=== PATIENT | male | born 1940 ===

== ENCOUNTER 2017-01-29 10:04 | Inpatient (IN) | payer MEDICAID, OTHER ==
--- NOTE | 2017-01-29 10:27 | C.PDOC ---
History Of Present Illness 76 y/o male, PMHx including asthma and emphysema, currently taking Proair and Symbicort daily, presents to ED with complaint of SOB. Patient states he became acutely short of breath [place]. Patient reports shortness of breath worsened today, prompting visit. Patient also reports non-productive cough. Otherwise, denies fever, chills, or chest pain. Patient notes concern for fluid in his lungs but denies any leg swelling. States he had a stress test 3 months ago that was normal. Speaking in complete sentences on arrival. PMD: Doe Leija Chief Complaint (Nursing): Shortness Of Breath History Per: Patient History/Exam Limitations: no limitations Onset/Duration Of Symptoms: Days Current Symptoms Are (Timing): Worse Current Respiratory Medications: Albuterol, Steroid Inhaler Associated Symptoms: denies: Fever, Chills, Chest Pain, Productive Cough, Ankle/ Leg Swelling Recent travel outside of the [place]: No Past Medical History Reviewed: Historical Data, Nursing Documentation, Vital Signs Vital Signs: Last Vital Signs Temp 97.4 F L 01/29/17 10:06 Pulse 93 H 01/29/17 10:06 Resp 18 01/29/17 10:43 BP 185/77 H 01/29/17 10:06 Pulse Ox 92 L 01/29/17 11:48 - Medical History PMH: Asthma, Emphysema, HTN Family History: States: Unknown Family Hx - Social History Hx Alcohol Use: Yes Hx Substance Use: No - Immunization History Hx Tetanus Toxoid Vaccination: No Hx Influenza Vaccination: Yes Hx Pneumococcal Vaccination: No Review Of Systems Except As Marked, All Systems Reviewed And Found Negative. Constitutional: Negative for: Fever, Chills Eyes: Negative for: Pain ENT: Negative for: Ear Pain Cardiovascular: Positive for: Chest Pain (intermittent ). Negative for: Palpitations, Orthopnea, Edema, Light Headedness Respiratory: Positive for: Cough, Shortness of Breath, SOB with Excertion. Negative for: Sputum, Wheezing Gastrointestinal: Negative for: Nausea, Vomiting Genitourinary: Negative for: Dysuria Skin: Negative for: Rash Neurological: Negative for: Weakness, Numbness, Altered Mental Status, Headache , Dizziness Psych: Negative for: Anxiety Physical Exam - Physical Exam Appears: Well, No Acute Distress, Other (speaking in complete sentences) Skin: Warm, Dry, No Diaphoretic Head: Atraumatic, Normacephalic Oral Mucosa: Moist Chest: Symmetrical Cardiovascular: Rhythm Regular, No Edema Respiratory: Decreased Breath Sounds (decreased air entry at bases ), No Rales, No Rhonchi, No Wheezing Gastrointestinal/Abdominal: Soft, No Tenderness Back: Normal Inspection Extremity: Normal ROM, No Pedal Edema, Capillary Refill (< 2 sec. ), No Swelling Neurological/Psych: Oriented x3, Normal Speech, Normal Cognition ED Course And Treatment - Laboratory Results Result Diagrams: 01/29/17 10:38 01/29/17 10:38 ECG: Interpreted By Me ECG Rhythm: Sinus Rhythm Interpretation Of ECG: no ST/T wave elevations, normal intervals Rate From EC (bpm) O2 Sat by Pulse Oximetry: 92 Medical Decision Making Medical Decision Making: ddx: copd exacerbation vs. ACS vs. pneumonia Plan: * duoneb treatment * bloodwork * CxR, EKG Progress: Spoke to radiologist Dr. Veronica as there is no prior cxray and it shows extensive interstitial opacities. Differential edema vs infection. Patient has no SIRS criteria, is afebrile and wbc of only 13. However, he also has no lower extremity edema and normal bnp making it diagnosis unclear. However, patient is symptomatic with concerning cxray and hypoxia, Due to concern for infection, blood and urine cx sent and antibiotics started (vbg with lactate sent). Due to concern for chf and due to elevated bp, lasix ordered due to lung sounds and hypoxia. Patient reports recent cardiac workup but unable to state MDs name and I am concerned due to cardiomegaly and cxray findings. Will likely need further cardiac workup and echo on this admission as well as further evaluation of ?infection. Spoke to Waqar as patient's PMD does not have privileges at [facility] and patient will be admitted to [facility]. Disposition - Disposition Disposition: HOSPITALIZED Disposition Time: 11:26 Condition: FAIR - Clinical Impression Clinical Impression: Shortness of breath, Chronic congestive heart failure - Scribe Statement The provider has reviewed the documentation as recorded by the Ashlie Mejia Provider Scribe Attestation: All medical record entries made by the Scribe were at my direction and personally dictated by me. I have reviewed the chart and agree that the record accurately reflects my personal performance of the history, physical exam, medical decision making, and the department course for this patient. I have also personally directed, reviewed, and agree with the discharge instructions and disposition.
[2017-01-29] MEDS ORDERED: Albuterol-Ipratrop 3 mg / 0.5 (3 ml) UD INH STA (10:28)
[2017-01-29 10:43] LABS: BASO % 0.3 % (0.0-2.0); EOS # 0.5 K/uL (0.0-0.7); EOS % 3.5 % (0.0-4.0); HEMATOCRIT 42.1 % (35.0-51.0); LYMPH # 3.8 K/uL (1.0-4.3); LYMPH % 29.5 % (20.0-40.0); MEAN CELL VOLUME 86.7 fL (80.0-94.0); MEAN CORPUSCULAR HGB CONC 32.3 g/dL (33.0-37.0); MEAN PLATELET VOLUME 7.4 fL (7.2-11.7); MONO # 0.9 K/uL (0.0-0.8); MONO % 7.2 % (0.0-10.0); NRBC % 0.1 % (0.0-2.0); RED CELL DISTRIBUTION WIDTH 13.8 % (11.5-14.5)
[2017-01-29] MEDS ORDERED: Albuterol-Ipratrop 3 mg / 0.5 (3 ml) UD ONE (10:46)
[2017-01-29 10:55] LABS: CHLORIDE 99 mmol/L (98-107); POTASSIUM 4.2 mmol/L (3.6-5.2); SODIUM 139 mmol/L (132-148)
[2017-01-29 10:58] LABS: ALKALINE PHOSPHATASE 100 U/L (38-126); ALT/SGPT 21 U/L (21-72); AST/SGOT 28 U/L (17-59); BILIRUBIN,TOTAL 0.8 mg/dL (0.2-1.3); BLOOD UREA NITROGEN 17 mg/dL (9-20); CALCIUM 9.1 mg/dl (8.6-10.4); CARBON DIOXIDE 31 mmol/L (22-30); GFR AFRICAN-AMERICAN > 60; GLUCOSE,RANDOM 97 mg/dL (75-110); TOTAL PROTEIN 7.9 g/dL (6.3-8.3)
[2017-01-29] MEDS ORDERED: Azithromycin 500 MG in Sodium Chloride 0.9% 250 ML IVPB STA (11:42)
--- NOTE | 2017-01-29 11:48 | RAD ---
HISTORY: shortness of breath COMPARISON: None available. TECHNIQUE: Chest, one view. FINDINGS: Examination limited by habitus. LUNGS: Moderate extensive patchy airspace and interstitial opacities may reflect infection or edema. Probable small bilateral pleural effusions. No definite pneumothorax. Please note that chest x-ray has limited sensitivity for the detection of pulmonary masses. CARDIOVASCULAR: Partially obscured cardiomegaly. OSSEOUS STRUCTURES: Degenerative changes of the spine and shoulders. VISUALIZED UPPER ABDOMEN: Unremarkable. OTHER FINDINGS: None. IMPRESSION: Moderate extensive patchy airspace and interstitial opacities may reflect infection or edema. Probable small bilateral pleural effusions. Partially obscured cardiomegaly.
[2017-01-29 13:14] LABS: DRAW SITE VENOUS; VENOUS BLOOD GAS BASE EXCESS 3.7 mmol/L (0.0-2.0); VENOUS BLOOD GAS PCO2 49 mmHg (40-60); VENOUS BLOOD PH 7.39 (7.32-7.43)
[2017-01-29] MEDS ORDERED: cefTRIAXone IV 1 gm in Dextros 50 ML IVPB ONE (13:20)
[2017-01-29] MEDS ORDERED: Azithromycin 500mg/250ML NS 500 MG/250 ML BAG IVPB ONE (13:53)
[2017-01-29] MEDS ORDERED: Albuterol HFA 90 mcg/actuation (8 g) IH PRN (16:18)
[2017-01-29] MEDS: cefTRIAXone IV 1 gm in Dextros 50 ML IVPB SCH (17:47)
[2017-01-29] MEDS: Naproxen 550 mg Tab PO SCH (17:47)
[2017-01-29] MEDS: MethylPREDNISolone 40 mg Vial IVP SCH (17:47)
[2017-01-29 17:54] LABS: RBC URINE 1 /hpf (0-3); URINE BILIRUBIN NEGATIVE (NEGATIVE); URINE BLOOD NEGATIVE (NEGATIVE); URINE COLOR Colorless (YELLOW); URINE GLUCOSE (UA) NORMAL (Normal); URINE KETONE NEGATIVE (NEGATIVE); URINE LEUKOCYTE ESTERASE NEG Leu/uL (Negative); URINE PROTEIN NEGATIVE (NEGATIVE); URINE UROBILINOGEN NORMAL mg/dL (0.2-1.0)
[2017-01-29] MEDS: Azithromycin 500 MG in Sodium Chloride 0.9% 250 ML IVPB SCH (19:13)
[2017-01-29] MEDS ORDERED: Fluticasone-Salmeterol 250-50mcg Diskus IH SCH (20:00)
--- NOTE | 2017-01-29 20:54 | CP.PCM.HP ---
History of Present Illness - History of Present Illness History of Present Illness: 76-year-old male with past medical history including asthma and emphysema, currently taking prior and Symbicort daily, presented to ED with complaints of SOB. Patient states he became acutely short of breath after [place] stairs [place]. Patient reports shortness of breath worsened today, prompting visit. Patient also reports nonproductive cough. Otherwise denies fever, chills or chest pain. Patient notes concern for fluid in his lung but denies any leg swelling. States he had a stress test 3 months ago that was normal. Speaking in complete sentences on arrival. Present on Admission - Present on Admission Any Indicators Present on Admission: No Past Patient History - Past Social History Smoking Status: Never Smoked - CARDIAC Hx Hypertension: Yes - PULMONARY Hx Asthma: Yes Hx Emphysema: Yes - NEUROLOGICAL Hx Neurological Disorder: No - HEENT Hx HEENT Problems: No - RENAL Hx Chronic Kidney Disease: No - ENDOCRINE/METABOLIC Hx Endocrine Disorders: No - HEMATOLOGICAL/ONCOLOGICAL Hx Blood Transfusions: No - INTEGUMENTARY Hx Dermatological Problems: No - MUSCULOSKELETAL/RHEUMATOLOGICAL Hx Falls: No - GASTROINTESTINAL Hx Gastrointestinal Disorders: No - GENITOURINARY/GYNECOLOGICAL Hx Genitourinary Disorders: No - PSYCHIATRIC Hx Substance Use: No - SURGICAL HISTORY Hx Surgeries: Yes Hx Herniorrhaphy: Yes - ANESTHESIA Hx Anesthesia: Yes Hx Anesthesia Reactions: No Hx Malignant Hyperthermia: No Has any member of the family had a problem w/ anesthesia?: No Meds Allergies/Adverse Reactions: Allergies Allergy/AdvReac Type Severity Reaction Status Date / Time pollen extracts Allergy Verified 02/05/17 18:15 Physical Exam - Constitutional Appears: Well - Head Exam Head Exam: ATRAUMATIC, NORMAL INSPECTION, NORMOCEPHALIC - Eye Exam Eye Exam: EOMI, Normal appearance, PERRL Pupil Exam: NORMAL ACCOMODATION, PERRL - ENT Exam ENT Exam: Mucous Membranes Moist, Normal Exam - Neck Exam Neck exam: Positive for: Normal Inspection - Respiratory Exam Respiratory Exam: Decreased Breath Sounds - Cardiovascular Exam Cardiovascular Exam: REGULAR RHYTHM, +S1, +S2 - GI/Abdominal Exam GI & Abdominal Exam: Diminished Bowel Sounds, Soft - Rectal Exam Rectal Exam: Deferred Results - Vital Signs Recent Vital Signs: Last Vital Signs Temp 97.3 F L 01/29/17 15:36 Pulse 86 01/29/17 15:36 Resp 20 01/29/17 15:36 BP 135/78 01/29/17 15:36 Pulse Ox 97 01/29/17 15:36 - Labs Result Diagrams: 02/02/17 11:30 02/02/17 11:30 Labs: Laboratory Results - last 24 hr 01/29/17 01/29/17 12:27 17:38 Puncture Site Venous pO2 19 L Jeremy Test Na VBG pH 7.39 VBG pCO2 49 VBG HCO3 25.9 VBG O2 Sat (Calc) 34.8 L VBG Base Excess 3.7 H Urine Color Colorless Urine Clarity Clear Urine pH 7.0 Ur Specific [place] 1.005 Urine Protein Negative Urine Glucose (UA) Normal Urine Ketones Negative Urine Blood Negative Urine Nitrate Negative Urine Bilirubin Negative Urine Urobilinogen Normal Ur Leukocyte Esterase Neg Urine RBC (Auto) 1 Ur Squamous Epith Cells < 1 Assessment & Plan (1) Chronic congestive heart failure Status: Acute (2) Emphysema of lung Status: Acute (3) Near syncope Status: Acute (4) Pneumonia Status: Acute (5) Shortness of breath Status: Acute (6) Shortness of breath Status: Acute - Assessment and Plan (Free Text) Plan: Consultation with prescription benefit specialist ecg, f/u with Cxr Start Duoneb heparin IV antibiotic
[2017-01-29] MEDS: Albuterol-Ipratrop 3 mg / 0.5 (3 ml) UD INH SCH (21:04)
[2017-01-30] MEDS: MethylPREDNISolone 40 mg Vial IVP SCH ×3 (00:28→16:48)
[2017-01-30] MEDS: Albuterol-Ipratrop 3 mg / 0.5 (3 ml) UD INH SCH ×4 (02:27→19:31)
[2017-01-30] MEDS: cefTRIAXone IV 1 gm in Dextros 50 ML IVPB SCH ×2 (05:26→16:49)
--- NOTE | 2017-01-30 09:39 | CP.PCM.PN ---
Subjective - Date & Time of Evaluation Date of Evaluation: 01/30/17 Time of Evaluation: 14:00 - Subjective Subjective: clinically same Objective - Vital Signs/Intake and Output Vital Signs (last 24 hours): Temp Pulse Resp BP Pulse Ox 97.6 F 93 H 18 152/69 H 98 01/30/17 07:00 01/30/17 07:00 01/30/17 07:00 01/30/17 07:00 01/30/17 07:00 Intake and Output: 01/30/17 01/30/17 06:59 18:59 Intake Total 170 Output Total 350 Balance -180 - Medications Medications: Current Medications Albuterol (Ventolin Hfa 90 Mcg/Actuation (8 G)) 90 puff IH RQ6 PRN PRN Reason: Shortness of Breath Albuterol/Ipratropium (Duoneb 3 Mg/0.5 Mg (3 Ml) Ud) 3 ml INH RQ6 [facility] Last Admin: 01/30/17 07:27 Dose: 3 ml Heparin Sodium (Porcine) (Heparin) 5,000 units SC Q12 [facility] Home Med (Budesonide/Formoterol Fumarate [Symbicort 160-4.5 Mcg Inhaler]) 1 aer IH BID [facility] Hydrochlorothiazide (Microzide) 12.5 mg PO DAILY [facility] Ceftriaxone Sodium (Rocephin Iv 1 Gm Duplex) 50 mls @ 100 mls/hr IVPB Q12H [facility] Last Admin: 01/30/17 05:26 Dose: 100 mls/hr Azithromycin 500 mg/ Sodium (Chloride) 250 mls @ 250 mls/hr IVPB Q24H [facility] Last Admin: 01/29/17 19:13 Dose: 250 mls/hr Losartan Potassium (Cozaar) 100 mg PO DAILY [facility] Methylprednisolone (Solu-Medrol) 40 mg IVP Q8H [facility] Last Admin: 01/30/17 00:28 Dose: 40 mg Naproxen (Anaprox Ds) 550 mg PO BID [facility] Last Admin: 01/29/17 17:47 Dose: 550 mg Pneumococcal Polyvalent Vaccine (Pneumovax 23 Vaccine) 0.5 ml IM .ONCE ONE Stop: 01/31/17 10:01 Potassium Chloride (Klor-Con 10) 10 meq PO DAILY [facility] - Constitutional Appears: Well - Head Exam Head Exam: ATRAUMATIC, NORMAL INSPECTION, NORMOCEPHALIC - Eye Exam Eye Exam: EOMI, Normal appearance, PERRL Pupil Exam: NORMAL ACCOMODATION, PERRL - ENT Exam ENT Exam: Mucous Membranes Moist, Normal Exam - Neck Exam Neck Exam: Full ROM, Normal Inspection. 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
[2017-01-30] MEDS: Naproxen 550 mg Tab PO SCH ×2 (10:31→16:59)
[2017-01-30] MEDS: Potassium Chloride 10 mEq ER Tab PO SCH (10:31)
[2017-01-30 11:27] LABS: BASO % 0.1 % (0.0-2.0); HEMATOCRIT 41.6 % (35.0-51.0); LYMPH # 3.4 K/uL (1.0-4.3); LYMPH % 19.9 % (20.0-40.0); MEAN CELL VOLUME 85.9 fL (80.0-94.0); MEAN CORPUSCULAR HEMOGLOBIN 27.8 pg (27.0-31.0); MEAN CORPUSCULAR HGB CONC 32.4 g/dL (33.0-37.0); MEAN PLATELET VOLUME 7.5 fL (7.2-11.7); MONO # 0.6 K/uL (0.0-0.8); MONO % 3.3 % (0.0-10.0); RED CELL DISTRIBUTION WIDTH 13.8 % (11.5-14.5); WHITE BLOOD COUNT 16.9 K/uL (4.8-10.8)
[2017-01-30 11:55] LABS: CHLORIDE 100 mmol/L (98-107); SODIUM 138 mmol/L (132-148)
[2017-01-30 11:57] LABS: ALB/GLOB RATIO 1.1 (1.0-2.1); ALKALINE PHOSPHATASE 86 U/L (38-126); AST/SGOT 22 U/L (17-59); BILIRUBIN,TOTAL 0.5 mg/dL (0.2-1.3); CARBON DIOXIDE 26 mmol/L (22-30); GFR AFRICAN-AMERICAN > 60; TOTAL PROTEIN 7.2 g/dL (6.3-8.3)
[2017-01-30 11:58] LABS: ALT/SGPT 18 U/L (21-72); BLOOD UREA NITROGEN 27 mg/dL (9-20); CALCIUM 8.8 mg/dl (8.6-10.4); GLUCOSE,RANDOM 161 mg/dL (75-110)
--- NOTE | 2017-01-30 18:48 | CP.PCM.CON ---
Past Patient History - Past Social History Smoking Status: Never Smoked - CARDIAC Hx Hypertension: Yes - PULMONARY Hx Asthma: Yes Hx Emphysema: Yes - NEUROLOGICAL Hx Neurological Disorder: No - HEENT Hx HEENT Problems: No - RENAL Hx Chronic Kidney Disease: No - ENDOCRINE/METABOLIC Hx Endocrine Disorders: No - HEMATOLOGICAL/ONCOLOGICAL Hx Blood Transfusions: No - INTEGUMENTARY Hx Dermatological Problems: No - MUSCULOSKELETAL/RHEUMATOLOGICAL Hx Falls: No - GASTROINTESTINAL Hx Gastrointestinal Disorders: No - GENITOURINARY/GYNECOLOGICAL Hx Genitourinary Disorders: No - PSYCHIATRIC Hx Substance Use: No - SURGICAL HISTORY Hx Surgeries: Yes Hx Herniorrhaphy: Yes - ANESTHESIA Hx Anesthesia: Yes Hx Anesthesia Reactions: No Hx Malignant Hyperthermia: No Has any member of the family had a problem w/ anesthesia?: No Meds Allergies/Adverse Reactions: Allergies Allergy/AdvReac Type Severity Reaction Status Date / Time pollen extracts Allergy Verified 01/29/17 10:11 - Medications Medications: Current Medications Albuterol (Ventolin Hfa 90 Mcg/Actuation (8 G)) 90 puff IH RQ6 PRN PRN Reason: Shortness of Breath Albuterol/Ipratropium (Duoneb 3 Mg/0.5 Mg (3 Ml) Ud) 3 ml INH RQ6 [facility] Last Admin: 01/30/17 13:16 Dose: 3 ml Heparin Sodium (Porcine) (Heparin) 5,000 units SC Q12 [facility] Last Admin: 01/30/17 10:31 Dose: 5,000 units Hydrochlorothiazide (Microzide) 12.5 mg PO DAILY [facility] Last Admin: 01/30/17 10:31 Dose: 12.5 mg Ceftriaxone Sodium (Rocephin Iv 1 Gm Duplex) 50 mls @ 100 mls/hr IVPB Q12H [facility] Last Admin: 01/30/17 16:49 Dose: 100 mls/hr Azithromycin 500 mg/ Sodium (Chloride) 250 mls @ 250 mls/hr IVPB Q24H [facility] Last Admin: 01/29/17 19:13 Dose: 250 mls/hr Losartan Potassium (Cozaar) 100 mg PO DAILY [facility] Last Admin: 01/30/17 10:31 Dose: 100 mg Methylprednisolone (Solu-Medrol) 40 mg IVP Q8H [facility] Last Admin: 01/30/17 16:48 Dose: 40 mg Naproxen (Anaprox Ds) 550 mg PO BID [facility] Last Admin: 01/30/17 16:59 Dose: 550 mg Pneumococcal Polyvalent Vaccine (Pneumovax 23 Vaccine) 0.5 ml IM .ONCE ONE Stop: 01/31/17 10:01 Potassium Chloride (Klor-Con 10) 10 meq PO DAILY [facility] Last Admin: 01/30/17 10:31 Dose: 10 meq Fluticasone/Salmeterol (Advair Diskus 250/50) 1 puff IH RQ12 [facility] Results - Vital Signs Recent Vital Signs: Last Vital Signs Temp 97.6 F 01/30/17 15:51 Pulse 106 H 01/30/17 16:50 Resp 20 01/30/17 15:51 BP 191/111 H 01/30/17 16:50 Pulse Ox 97 01/30/17 16:50 - Labs Result Diagrams: 01/30/17 11:13 01/30/17 11:13 Labs: Laboratory Results - last 24 hr 01/30/17 01/30/17 11:13 11:13 WBC 16.9 H RBC 4.85 Hgb 13.5 Hct 41.6 MCV 85.9 MCH 27.8 MCHC 32.4 L RDW 13.8 Plt Count 463 H MPV 7.5 Neut % (Auto) 76.7 H Lymph % (Auto) 19.9 L [place] % (Auto) 3.3 Eos % (Auto) 0.0 Baso % (Auto) 0.1 Neut # 13.0 H Lymph # 3.4 [place] # 0.6 Eos # 0.0 Baso # 0.0 Sodium 138 Potassium 4.0 Chloride 100 Carbon Dioxide 26 Anion Gap 16 BUN 27 H Creatinine 0.8 Est GFR ( Amer) > 60 Est GFR (Non-Af Amer) > 60 Random Glucose 161 H Calcium 8.8 Total Bilirubin 0.5 AST 22 ALT 18 L Alkaline Phosphatase 86 Total Protein 7.2 Albumin 3.7 Globulin 3.5 Albumin/Globulin Ratio 1.1
[2017-01-30] MEDS: Azithromycin 500 MG in Sodium Chloride 0.9% 250 ML IVPB SCH (19:09)
[2017-01-31] MEDS: MethylPREDNISolone 40 mg Vial IVP SCH ×3 (00:12→17:30)
[2017-01-31] MEDS: Albuterol-Ipratrop 3 mg / 0.5 (3 ml) UD INH SCH ×4 (01:18→19:31)
[2017-01-31] MEDS: cefTRIAXone IV 1 gm in Dextros 50 ML IVPB SCH ×2 (05:18→18:10)
[2017-01-31] MEDS ORDERED: Pneumococcal 23-Valent Vaccine IM ONE ×2 (10:00→11:15)
[2017-01-31] MEDS: Naproxen 550 mg Tab PO SCH ×2 (11:02→18:10)
[2017-01-31] MEDS: Potassium Chloride 10 mEq ER Tab PO SCH (11:02)
--- NOTE | 2017-01-31 14:21 | CP.PCM.PN ---
Subjective - Date & Time of Evaluation Date of Evaluation: 01/31/17 Time of Evaluation: 12:40 - Subjective Subjective: clinically same Objective - Vital Signs/Intake and Output Vital Signs (last 24 hours): Temp Pulse Resp BP Pulse Ox 97.3 F L 83 18 141/51 L 96 01/31/17 07:12 01/31/17 07:12 01/31/17 07:12 01/31/17 07:12 01/31/17 07:12 Intake and Output: 01/31/17 01/31/17 06:59 18:59 Intake Total 540 Balance 540 - Medications Medications: Current Medications Albuterol (Ventolin Hfa 90 Mcg/Actuation (8 G)) 90 puff IH RQ6 PRN PRN Reason: Shortness of Breath Albuterol/Ipratropium (Duoneb 3 Mg/0.5 Mg (3 Ml) Ud) 3 ml INH RQ6 [facility] Last Admin: 01/31/17 08:47 Dose: 3 ml Heparin Sodium (Porcine) (Heparin) 5,000 units SC Q12 [facility] Last Admin: 01/31/17 11:03 Dose: 5,000 units Hydrochlorothiazide (Microzide) 12.5 mg PO DAILY [facility] Last Admin: 01/31/17 11:02 Dose: 12.5 mg Ceftriaxone Sodium (Rocephin Iv 1 Gm Duplex) 50 mls @ 100 mls/hr IVPB Q12H [facility] Last Admin: 01/31/17 05:18 Dose: 100 mls/hr Azithromycin 500 mg/ Sodium (Chloride) 250 mls @ 250 mls/hr IVPB Q24H [facility] Last Admin: 01/30/17 19:09 Dose: 250 mls/hr Losartan Potassium (Cozaar) 100 mg PO DAILY [facility] Last Admin: 01/31/17 11:02 Dose: 100 mg Methylprednisolone (Solu-Medrol) 40 mg IVP Q8H [facility] Last Admin: 01/31/17 09:03 Dose: 40 mg Naproxen (Anaprox Ds) 550 mg PO BID [facility] Last Admin: 01/31/17 11:02 Dose: 550 mg Potassium Chloride (Klor-Con 10) 10 meq PO DAILY [facility] Last Admin: 01/31/17 11:02 Dose: 10 meq Fluticasone/Salmeterol (Advair Diskus 250/50) 1 puff IH RQ12 [facility] - Labs Labs: 01/30/17 11:13 01/30/17 11:13 - Constitutional Appears: Well - Head Exam Head Exam: ATRAUMATIC, NORMAL INSPECTION, NORMOCEPHALIC - Eye Exam Eye Exam: EOMI, Normal appearance, PERRL Pupil Exam: NORMAL ACCOMODATION, PERRL - ENT Exam ENT Exam: Mucous Membranes Moist, Normal Exam - Neck Exam Neck Exam: Full ROM, Normal Inspection. absent: Lymphadenopathy - Respiratory Exam Respiratory Exam: Decreased Breath Sounds - Cardiovascular Exam Cardiovascular Exam: REGULAR RHYTHM, +S1, +S2 - GI/Abdominal Exam GI & Abdominal Exam: Soft, Diminished Bowel Sounds - Rectal Exam Rectal Exam: Deferred Assessment and Plan - Assessment and Plan (Free Text) Plan: f/u with statement services representative f/u with labs jennifer. Duoneb heparin IV antibiotic
--- NOTE | 2017-01-31 16:16 | CP.PCM.PN ---
Subjective - Date & Time of Evaluation Date of Evaluation: 01/31/17 Time of Evaluation: 16:16 Objective - Vital Signs/Intake and Output Vital Signs (last 24 hours): Temp Pulse Resp BP Pulse Ox 97.3 F L 81 18 141/51 L 96 01/31/17 07:12 01/31/17 08:00 01/31/17 07:12 01/31/17 07:12 01/31/17 07:12 Intake and Output: 01/31/17 01/31/17 06:59 18:59 Intake Total 540 Balance 540 - Medications Medications: Current Medications Albuterol (Ventolin Hfa 90 Mcg/Actuation (8 G)) 90 puff IH RQ6 PRN PRN Reason: Shortness of Breath Albuterol/Ipratropium (Duoneb 3 Mg/0.5 Mg (3 Ml) Ud) 3 ml INH RQ6 [facility] Last Admin: 01/31/17 13:25 Dose: 3 ml Heparin Sodium (Porcine) (Heparin) 5,000 units SC Q12 [facility] Last Admin: 01/31/17 11:03 Dose: 5,000 units Hydrochlorothiazide (Microzide) 12.5 mg PO DAILY [facility] Last Admin: 01/31/17 11:02 Dose: 12.5 mg Ceftriaxone Sodium (Rocephin Iv 1 Gm Duplex) 50 mls @ 100 mls/hr IVPB Q12H [facility] Last Admin: 01/31/17 05:18 Dose: 100 mls/hr Azithromycin 500 mg/ Sodium (Chloride) 250 mls @ 250 mls/hr IVPB Q24H [facility] Last Admin: 01/30/17 19:09 Dose: 250 mls/hr Losartan Potassium (Cozaar) 100 mg PO DAILY [facility] Last Admin: 01/31/17 11:02 Dose: 100 mg Methylprednisolone (Solu-Medrol) 40 mg IVP Q8H [facility] Last Admin: 01/31/17 09:03 Dose: 40 mg Naproxen (Anaprox Ds) 550 mg PO BID [facility] Last Admin: 01/31/17 11:02 Dose: 550 mg Potassium Chloride (Klor-Con 10) 10 meq PO DAILY [facility] Last Admin: 01/31/17 11:02 Dose: 10 meq Fluticasone/Salmeterol (Advair Diskus 250/50) 1 puff IH RQ12 [facility] Last Admin: 01/31/17 14:59 Dose: Not Given - Labs Labs: 01/30/17 11:13 01/30/17 11:13
[2017-01-31] MEDS: Azithromycin 500 MG in Sodium Chloride 0.9% 250 ML IVPB SCH (20:00)
[2017-02-01] MEDS: MethylPREDNISolone 40 mg Vial IVP SCH ×3 (00:20→17:04)
[2017-02-01] MEDS: Albuterol-Ipratrop 3 mg / 0.5 (3 ml) UD INH SCH ×4 (01:22→19:34)
[2017-02-01] MEDS: cefTRIAXone IV 1 gm in Dextros 50 ML IVPB SCH ×2 (04:57→17:05)
[2017-02-01] MEDS: Potassium Chloride 10 mEq ER Tab PO SCH (11:05)
[2017-02-01] MEDS: Naproxen 550 mg Tab PO SCH ×2 (11:07→17:04)
--- NOTE | 2017-02-01 12:49 | CP.PCM.PN ---
Subjective - Date & Time of Evaluation Date of Evaluation: 02/01/17 Time of Evaluation: 11:40 - Subjective Subjective: clinically same Objective - Vital Signs/Intake and Output Vital Signs (last 24 hours): Temp Pulse Resp BP Pulse Ox 97.9 F 80 20 162/80 H 98 02/01/17 07:07 02/01/17 08:00 02/01/17 07:07 02/01/17 07:07 02/01/17 07:07 Intake and Output: 02/01/17 02/01/17 06:59 18:59 Intake Total 700 Output Total 1800 Balance -1100 - Medications Medications: Current Medications Albuterol (Ventolin Hfa 90 Mcg/Actuation (8 G)) 90 puff IH RQ6 PRN PRN Reason: Shortness of Breath Albuterol/Ipratropium (Duoneb 3 Mg/0.5 Mg (3 Ml) Ud) 3 ml INH RQ6 [facility] Last Admin: 02/01/17 07:56 Dose: 3 ml Heparin Sodium (Porcine) (Heparin) 5,000 units SC Q12 [facility] Last Admin: 02/01/17 11:04 Dose: 5,000 units Hydrochlorothiazide (Microzide) 12.5 mg PO DAILY [facility] Last Admin: 02/01/17 11:05 Dose: 12.5 mg Ceftriaxone Sodium (Rocephin Iv 1 Gm Duplex) 50 mls @ 100 mls/hr IVPB Q12H [facility] Last Admin: 02/01/17 04:57 Dose: 100 mls/hr Azithromycin 500 mg/ Sodium (Chloride) 250 mls @ 250 mls/hr IVPB Q24H [facility] Last Admin: 01/31/17 20:00 Dose: 250 mls/hr Losartan Potassium (Cozaar) 100 mg PO DAILY [facility] Last Admin: 02/01/17 11:05 Dose: 100 mg Methylprednisolone (Solu-Medrol) 40 mg IVP Q8H [facility] Last Admin: 02/01/17 11:09 Dose: 40 mg Naproxen (Anaprox Ds) 550 mg PO BID [facility] Last Admin: 02/01/17 11:07 Dose: 550 mg Potassium Chloride (Klor-Con 10) 10 meq PO DAILY [facility] Last Admin: 02/01/17 11:05 Dose: 10 meq Fluticasone/Salmeterol (Advair Diskus 250/50) 1 puff IH RQ12 [facility] Last Admin: 01/31/17 14:59 Dose: Not Given - Labs Labs: 01/30/17 11:13 01/30/17 11:13 - Constitutional Appears: Well - Head Exam Head Exam: ATRAUMATIC, NORMAL INSPECTION, NORMOCEPHALIC - Eye Exam Eye Exam: EOMI, Normal appearance, PERRL Pupil Exam: NORMAL ACCOMODATION, PERRL - ENT Exam ENT Exam: Mucous Membranes Moist, Normal Exam - Neck Exam Neck Exam: Full ROM, Normal Inspection. absent: Lymphadenopathy - Respiratory Exam Respiratory Exam: Decreased Breath Sounds - Cardiovascular Exam Cardiovascular Exam: REGULAR RHYTHM, +S1, +S2 - GI/Abdominal Exam GI & Abdominal Exam: Soft, Diminished Bowel Sounds - Rectal Exam Rectal Exam: Deferred Assessment and Plan (1) Emphysema of lung Status: Acute (2) Pneumonia Status: Acute (3) Chronic congestive heart failure Status: Acute (4) Shortness of breath Status: Acute - Assessment and Plan (Free Text) Plan: jennifer iv rocephin zthromax pulm consult brnchodilator pt feels better will discharge on po antibiotic tomorrow if ok with dr. nam.
--- NOTE | 2017-02-01 19:11 | CP.PCM.PN ---
Objective - Vital Signs/Intake and Output Vital Signs (last 24 hours): Temp Pulse Resp BP Pulse Ox 97.8 F 106 H 20 135/78 95 02/01/17 15:39 02/01/17 15:39 02/01/17 15:39 02/01/17 15:39 02/01/17 15:39 Intake and Output: 02/01/17 02/02/17 18:59 06:59 Intake Total 400 Balance 400 - Medications Medications: Current Medications Albuterol (Ventolin Hfa 90 Mcg/Actuation (8 G)) 90 puff IH RQ6 PRN PRN Reason: Shortness of Breath Albuterol/Ipratropium (Duoneb 3 Mg/0.5 Mg (3 Ml) Ud) 3 ml INH RQ6 [facility] Last Admin: 02/01/17 14:27 Dose: 3 ml Heparin Sodium (Porcine) (Heparin) 5,000 units SC Q12 [facility] Last Admin: 02/01/17 11:04 Dose: 5,000 units Hydrochlorothiazide (Microzide) 12.5 mg PO DAILY [facility] Last Admin: 02/01/17 11:05 Dose: 12.5 mg Ceftriaxone Sodium (Rocephin Iv 1 Gm Duplex) 50 mls @ 100 mls/hr IVPB Q12H [facility] Last Admin: 02/01/17 17:05 Dose: 100 mls/hr Azithromycin 500 mg/ Sodium (Chloride) 250 mls @ 250 mls/hr IVPB Q24H [facility] Last Admin: 01/31/17 20:00 Dose: 250 mls/hr Losartan Potassium (Cozaar) 100 mg PO DAILY [facility] Last Admin: 02/01/17 11:05 Dose: 100 mg Methylprednisolone (Solu-Medrol) 40 mg IVP Q8H [facility] Last Admin: 02/01/17 17:04 Dose: 40 mg Naproxen (Anaprox Ds) 550 mg PO BID [facility] Last Admin: 02/01/17 17:04 Dose: 550 mg Potassium Chloride (Klor-Con 10) 10 meq PO DAILY [facility] Last Admin: 02/01/17 11:05 Dose: 10 meq Fluticasone/Salmeterol (Advair Diskus 250/50) 1 puff IH RQ12 [facility] Last Admin: 01/31/17 14:59 Dose: Not Given - Labs Labs: 01/30/17 11:13 01/30/17 11:13
[2017-02-01] MEDS: Azithromycin 500 MG in Sodium Chloride 0.9% 250 ML IVPB SCH (20:00)
[2017-02-02] MEDS: MethylPREDNISolone 40 mg Vial IVP SCH ×2 (01:29→08:56)
[2017-02-02] MEDS: Albuterol-Ipratrop 3 mg / 0.5 (3 ml) UD INH SCH ×3 (01:34→13:37)
[2017-02-02] MEDS: cefTRIAXone IV 1 gm in Dextros 50 ML IVPB SCH (05:13)
[2017-02-02] MEDS: Potassium Chloride 10 mEq ER Tab PO SCH (09:51)
[2017-02-02] MEDS: Naproxen 550 mg Tab PO SCH (09:52)
[2017-02-02 11:52] LABS: MONO # 1.3 K/uL (0.0-0.8)
[2017-02-02 12:02] LABS: BASO % 0.1 % (0.0-2.0); HEMATOCRIT 44.2 % (35.0-51.0); LYMPH # 6.3 K/uL (1.0-4.3); LYMPH % 25.6 % (20.0-40.0); MEAN CELL VOLUME 87.3 fL (80.0-94.0); MEAN CORPUSCULAR HEMOGLOBIN 27.7 pg (27.0-31.0); MEAN CORPUSCULAR HGB CONC 31.8 g/dL (33.0-37.0); MEAN PLATELET VOLUME 7.6 fL (7.2-11.7); MONO % 5.3 % (0.0-10.0)
[2017-02-02 12:03] LABS: WHITE BLOOD COUNT 24.7 K/uL (4.8-10.8)
[2017-02-02 12:11] LABS: CHLORIDE 98 mmol/L (98-107); POTASSIUM 5.5 mmol/L (3.6-5.2); SODIUM 143 mmol/L (132-148)
[2017-02-02 12:14] LABS: ALB/GLOB RATIO 1.1 (1.0-2.1); ALKALINE PHOSPHATASE 89 U/L (38-126); ALT/SGPT 14 U/L (21-72); AST/SGOT 31 U/L (17-59); BILIRUBIN,TOTAL 0.7 mg/dL (0.2-1.3); BLOOD UREA NITROGEN 29 mg/dL (9-20); CARBON DIOXIDE 32 mmol/L (22-30); GFR AFRICAN-AMERICAN > 60; GLUCOSE,RANDOM 134 mg/dL (75-110); TOTAL PROTEIN 7.6 g/dL (6.3-8.3)
[2017-02-02 12:15] LABS: CALCIUM 9.2 mg/dl (8.6-10.4)
--- NOTE | 2017-02-02 14:01 | CP.PCM.PN ---
Subjective - Date & Time of Evaluation Date of Evaluation: 02/02/17 Time of Evaluation: 12:20 - Subjective Subjective: clinically same Objective - Vital Signs/Intake and Output Vital Signs (last 24 hours): Temp Pulse Resp BP Pulse Ox 97.9 F 97 H 18 183/78 H 95 02/02/17 08:38 02/02/17 09:49 02/02/17 08:38 02/02/17 12:35 02/02/17 08:38 Intake and Output: 02/02/17 02/02/17 06:59 18:59 Intake Total 260 Output Total 150 Balance 110 - Medications Medications: Current Medications Albuterol (Ventolin Hfa 90 Mcg/Actuation (8 G)) 90 puff IH RQ6 PRN PRN Reason: Shortness of Breath Albuterol/Ipratropium (Duoneb 3 Mg/0.5 Mg (3 Ml) Ud) 3 ml INH RQ6 [facility] Last Admin: 02/02/17 13:37 Dose: 3 ml Hydrochlorothiazide (Microzide) 12.5 mg PO DAILY [facility] Last Admin: 02/02/17 09:51 Dose: 12.5 mg Ceftriaxone Sodium (Rocephin Iv 1 Gm Duplex) 50 mls @ 100 mls/hr IVPB Q12H [facility] Last Admin: 02/02/17 05:13 Dose: 100 mls/hr Azithromycin 500 mg/ Sodium (Chloride) 250 mls @ 250 mls/hr IVPB Q24H [facility] Last Admin: 02/01/17 20:00 Dose: 250 mls/hr Losartan Potassium (Cozaar) 100 mg PO DAILY [facility] Last Admin: 02/02/17 09:51 Dose: 100 mg Methylprednisolone (Solu-Medrol) 40 mg IVP Q8H [facility] Last Admin: 02/02/17 08:56 Dose: 40 mg Naproxen (Anaprox Ds) 550 mg PO BID [facility] Last Admin: 02/02/17 09:52 Dose: Not Given Potassium Chloride (Klor-Con 10) 10 meq PO DAILY [facility] Last Admin: 02/02/17 09:51 Dose: 10 meq Fluticasone/Salmeterol (Advair Diskus 250/50) 1 puff IH RQ12 [facility] Last Admin: 01/31/17 14:59 Dose: Not Given - Labs Labs: 02/02/17 11:30 02/02/17 11:30 - Constitutional Appears: Well - Head Exam Head Exam: ATRAUMATIC, NORMAL INSPECTION, NORMOCEPHALIC - Eye Exam Eye Exam: EOMI, Normal appearance, PERRL Pupil Exam: NORMAL ACCOMODATION, PERRL - ENT Exam ENT Exam: Mucous Membranes Moist, Normal Exam - Neck Exam Neck Exam: Full ROM, Normal Inspection. absent: Lymphadenopathy - Respiratory Exam Respiratory Exam: Decreased Breath Sounds - Cardiovascular Exam Cardiovascular Exam: REGULAR RHYTHM, +S1, +S2 - GI/Abdominal Exam GI & Abdominal Exam: Soft, Diminished Bowel Sounds - Rectal Exam Rectal Exam: Deferred Assessment and Plan (1) Emphysema of lung Status: Acute (2) Pneumonia Status: Acute (3) Chronic congestive heart failure Status: Acute (4) Shortness of breath Status: Acute - Assessment and Plan (Free Text) Plan: Patient wiil be discharg home today Continue PO antibiotics as ordered
[2017-02-02] MEDS ORDERED: Sod Polystyrene Sulf 15 gm/60 ml Oral Susp PO ONE (14:57)
--- NOTE | 2017-02-02 15:09 | CP.PCM.PN ---
Subjective - Date & Time of Evaluation Date of Evaluation: 02/02/17 Time of Evaluation: 10:00 - Subjective Subjective: PGY2 on medicine Dr. Rueda service: Pt seen and examined at bedside this morning. No acute events overnight. Pt reports much better symptoms since last week. Pt can do random peak flow of 450. Will DC home today. Objective - Vital Signs/Intake and Output Vital Signs (last 24 hours): Temp Pulse Resp BP Pulse Ox 97.9 F 97 H 18 183/78 H 95 02/02/17 08:38 02/02/17 09:49 02/02/17 08:38 02/02/17 12:35 02/02/17 08:38 Intake and Output: 02/02/17 02/02/17 06:59 18:59 Intake Total 260 Output Total 150 Balance 110 - Medications Medications: Current Medications Albuterol (Ventolin Hfa 90 Mcg/Actuation (8 G)) 90 puff IH RQ6 PRN PRN Reason: Shortness of Breath Albuterol/Ipratropium (Duoneb 3 Mg/0.5 Mg (3 Ml) Ud) 3 ml INH RQ6 [facility] Last Admin: 02/02/17 13:37 Dose: 3 ml Hydrochlorothiazide (Microzide) 12.5 mg PO DAILY [facility] Last Admin: 02/02/17 09:51 Dose: 12.5 mg Ceftriaxone Sodium (Rocephin Iv 1 Gm Duplex) 50 mls @ 100 mls/hr IVPB Q12H [facility] Last Admin: 02/02/17 05:13 Dose: 100 mls/hr Azithromycin 500 mg/ Sodium (Chloride) 250 mls @ 250 mls/hr IVPB Q24H [facility] Last Admin: 02/01/17 20:00 Dose: 250 mls/hr Losartan Potassium (Cozaar) 100 mg PO DAILY [facility] Last Admin: 02/02/17 09:51 Dose: 100 mg Methylprednisolone (Solu-Medrol) 40 mg IVP Q8H [facility] Last Admin: 02/02/17 08:56 Dose: 40 mg Naproxen (Anaprox Ds) 550 mg PO BID [facility] Last Admin: 02/02/17 09:52 Dose: Not Given Potassium Chloride (Klor-Con 10) 10 meq PO DAILY [facility] Last Admin: 02/02/17 09:51 Dose: 10 meq Fluticasone/Salmeterol (Advair Diskus 250/50) 1 puff IH RQ12 [facility] Last Admin: 01/31/17 14:59 Dose: Not Given Sodium Polystyrene Sulfonate (Kayexalate Oral Susp) 30 gm PO ONCE ONE Stop: 02/02/17 14:58 - Labs Labs: 02/02/17 11:30 02/02/17 11:30 - Constitutional Appears: Non-toxic, No Acute Distress - Head Exam Head Exam: NORMAL INSPECTION, NORMOCEPHALIC - Eye Exam Eye Exam: Normal appearance Pupil Exam: NORMAL ACCOMODATION - Respiratory Exam Respiratory Exam: Clear to Ausculation Bilateral, NORMAL BREATHING PATTERN. absent: Rhonchi, Wheezes - Cardiovascular Exam Cardiovascular Exam: REGULAR RHYTHM, +S1, +S2. absent: Gallop, Rubs - GI/Abdominal Exam GI & Abdominal Exam: Soft, Normal Bowel Sounds - Neurological Exam Neurological Exam: Alert, Awake, Oriented x3 - Psychiatric Exam Psychiatric exam: Normal Mood - Skin Skin Exam: Dry, Intact Assessment and Plan - Assessment and Plan (Free Text) Assessment: SOB asthma vs pneumonia vs early mild diastolic CHF Duoneb q6. Advair and Ventolin. Zithromax and Rocephin since 01/29. Will DC with 3 more days of Avelox, as well as Medrol Dose pack. HTN Continue home Cozaar and HCTZ. Hyperkalemia Will give a dose of Kayexalate.
[2017-02-02 16:36] VITALS: BP 161/80; PULSE 98; RESP 24; TEMP 97.4; O2SAT 92
--- NOTE | 2017-02-02 17:44 | PCM.HF ---
Heart Failure Core Measure - Heart Failure Ejection Fraction: 40 % or Greater LIZZ Inhibitor Prescribed: No Contraindication/Reason for not providing: ON ARB Beta-Rickey Prescribed: None Contraindication/Reason for not providing: NOT RX BY MD Angiotensin II Receptor Rickey Prescribed: Yes AnticoagulationTherapy for Atrial Fibrillation/Atrialflutter: No Contraindication/Reason for not providing: NO AFIB Aldosterone Antagonist Prescribed: No Contraindication/Reason for not providing: LVEF >40% Hydralazine Nitrate Prescribed: No Contraindication/Reason for not providing: LVEF >40% Implantable Cardioverter Defibrillator Therapy: No Contraindication/Reason for not providing: LVEF >40% Cardiac Resynchronization Therapy Prescribed: No Contraindication/Reason for not providing: LVEF >40% - Follow up Will be discharged to: Home Follow Up Date (must be within 7 days from discharge): 02/05/17 Follow Up Time: 09:00
--- NOTE | 2017-03-17 12:34 | CARD ---
APPROVED REPORT EKG Measurement Heart [id number] <Conclusion> Normal sinus rhythm Nonspecific ST abnormality Abnormal ECG
== END 2017-02-02 16:00 | disposition home or self-care (01) | DRG 190 ==
LOC: C.ER 10:04 → C.9E 11:46 → C.6T 13:58
PROVIDERS: ADMIT Internal Medicine Nephrology; ATTEND Internal Medicine Nephrology
DX: J44.1 Chronic obstructive pulmonary disease with (acute) exacerbation (principal); J18.9 Pneumonia, unspecified organism; I50.43 Acute on chronic combined systolic (congestive) and diastolic (congestive) heart failure; I11.0 Hypertensive heart disease with heart failure; E87.5 Hyperkalemia; J45.909 Unspecified asthma, uncomplicated

== ENCOUNTER 2017-02-05 18:01 | Inpatient (IN) | payer OTHER, MEDICAID ==
[2017-02-05 18:16] VITALS: BMI 28.5
[2017-02-05] MEDS ORDERED: Nitroglycerin 2% Ointment Foilpak UD TOP STA (19:04)
[2017-02-05 19:28] LABS: BASO % 0.1 % (0.0-2.0); EOS # 0.3 K/uL (0.0-0.7); EOS % 1.3 % (0.0-4.0); HEMATOCRIT 44.9 % (35.0-51.0); LYMPH # 6.9 K/uL (1.0-4.3); LYMPH % 34.4 % (20.0-40.0); MEAN CELL VOLUME 86.4 fL (80.0-94.0); MEAN CORPUSCULAR HGB CONC 32.4 g/dL (33.0-37.0); MEAN PLATELET VOLUME 7.5 fL (7.2-11.7); MONO # 1.1 K/uL (0.0-0.8); MONO % 5.3 % (0.0-10.0); NRBC % 0.1 % (0.0-2.0); WHITE BLOOD COUNT 20.2 K/uL (4.8-10.8)
[2017-02-05] MEDS ORDERED: Nitroglycerin 2% Ointment Foilpak UD TOP ONE (19:28)
[2017-02-05 19:37] LABS: CHLORIDE 97 mmol/L (98-107)
[2017-02-05 19:38] LABS: POTASSIUM 4.8 mmol/L (3.6-5.2); SODIUM 135 mmol/L (132-148)
[2017-02-05 19:40] LABS: ALB/GLOB RATIO 1.1 (1.0-2.1); ALKALINE PHOSPHATASE 79 U/L (38-126); AST/SGOT 39 U/L (17-59); CARBON DIOXIDE 30 mmol/L (22-30); GFR AFRICAN-AMERICAN > 60; TOTAL PROTEIN 7.9 g/dL (6.3-8.3)
[2017-02-05 19:41] LABS: ALT/SGPT 25 U/L (21-72); BLOOD UREA NITROGEN 29 mg/dL (9-20); CALCIUM 8.8 mg/dl (8.6-10.4); GLUCOSE,RANDOM 85 mg/dL (75-110)
[2017-02-05 19:41] LABS: ABG ALLEN TEST POS; ARTERIAL BLOOD HGB O2 SAT 95.7 % (95.0-98.0); CARBOXYHEMOGLOBIN 1.1 % (0.5-1.5); DRAW SITE RRA; HHB 2.4 % (0.0-5.0); METHEMOGLOBIN 0.8 % (0.0-3.0)
--- NOTE | 2017-02-05 19:57 | CT ---
EXAM: CT Head Without Intravenous Contrast CLINICAL HISTORY: 76 years old, male; Signs and symptoms; Syncope and collapse; Additional info: ? Syncope TECHNIQUE: Axial computed tomography images of the head/brain without intravenous contrast. This CT exam was performed using one or more of the following dose reduction techniques: automated exposure control, adjustment of the mA and/or kV according to patient size, and/or use of iterative reconstruction technique. EXAM DATE/TIME: Exam ordered 02/05/2017 7:05 PM COMPARISON: No relevant prior studies available. FINDINGS: Brain: There is mild age-appropriate cortical atrophy. No hemorrhage. No significant white matter disease. No edema. Ventricles: Unremarkable. No ventriculomegaly. Bones/joints: Unremarkable. No acute fracture. Soft tissues: Unremarkable. Sinuses: Minimal mucosal thickening is noted within the ethmoid air cells Mastoid air cells: Unremarkable as visualized. No mastoid effusion. Orbits: Calcification is noted along the medial margin of the left globe. This may be postsurgical. IMPRESSION: 1. No acute findings. 2. Minimal ethmoid mucosal thickening
--- NOTE | 2017-02-05 20:02 | C.PDOC ---
History Of Present Illness Patient is a 76 y/o male that is brought to the ED by EMS for evaluation of near syncopal episode, dizziness, and chest pain. Patient was recently admitted , from 01/29-02/02 for pneumonia. Otherwise, denies any shortness of breath, palpitations, lightheadedness, headache, extremity weakness/numbness, or any other associated symptoms at this time. Time Seen by Provider: 02/05/17 18:53 Chief Complaint (Nursing): Syncope History Per: Patient History/Exam Limitations: no limitations Onset/Duration Of Symptoms: Days Current Symptoms Are (Timing): Still Present Recent travel outside of the [place]: No Additional History Per: EMS Past Medical History Reviewed: Historical Data, Nursing Documentation, Vital Signs Vital Signs: Last Vital Signs Temp 98.3 F 02/05/17 18:16 Pulse 83 02/05/17 20:44 Resp 20 02/05/17 20:44 BP 116/74 02/05/17 20:44 Pulse Ox 100 02/05/17 21:15 - Medical History PMH: Asthma, COPD (Emphysema), Emphysema, HTN Denies: Chronic Kidney Disease Family History: States: Unknown Family Hx - Social History Hx Alcohol Use: No Hx Substance Use: No - Immunization History Hx Tetanus Toxoid Vaccination: No Hx Influenza Vaccination: Yes Hx Pneumococcal Vaccination: No Review Of Systems Except As Marked, All Systems Reviewed And Found Negative. Constitutional: Negative for: Fever, Chills Cardiovascular: Positive for: Chest Pain. Negative for: Palpitations, Edema, Light Headedness Respiratory: Negative for: Shortness of Breath, SOB with Excertion, Wheezing Gastrointestinal: Negative for: Nausea, Vomiting Neurological: Positive for: Dizziness. Negative for: Weakness, Numbness, Headache Physical Exam - Physical Exam Appears: Non-toxic, No Acute Distress Skin: Normal Color, Warm, Dry Head: Atraumatic, Normacephalic Eye(s): bilateral: Normal Inspection, EOMI Neck: Normal ROM, Supple Chest: Symmetrical, No Tenderness Cardiovascular: Rhythm Regular, No Murmur Respiratory: Rales (crackles, and rales throughout lungs), No Rhonchi, No Wheezing Gastrointestinal/Abdominal: Soft, No Tenderness Extremity: Normal ROM, No Deformity Neurological/Psych: Oriented x3, Normal Speech, Normal Cognition ED Course And Treatment - Laboratory Results Result Diagrams: 02/05/17 19:25 02/05/17 19:25 Lab Interpretation: Abnormal (++ leukocytosis, d-dimer neg, ABG wnl) ECG: Interpreted By Me ECG Rhythm: Sinus Rhythm ECG Interpretation: Normal Rate From EC (bpm) O2 Sat by Pulse Oximetry: 100 (on RA) Pulse Ox Interpretation: Normal - Radiology CXR: Interpreted by Me CXR Interpretation: Yes: Infiltrates (+ ? patchy infiltrates) - CT Scan/US Head CT w/o contrast Other Rad Studies (CT/US): Read By Radiologist, Radiology Report Reviewed CT/US Interpretation: IMPRESSION: 1. No acute findings. 2. Minimal ethmoid mucosal thickening Progress Note: Labs, EKG, CXR, head CT ordered and reviewed. Patient was given nebulizer treatment in the ER. Reevaluation Time: 20:50 Reassessment Condition: Unchanged - Physician Consult Information Outcome Of Conversation: 1899 and 2044: d/w Dr. Kory Rueda- PMD- ok to Tele obs Medical Decision Making Medical Decision Making: persistent patchy infiltrates vs pulm fibrosis, near syncope, normal head CT Disposition Doctor Will See Patient In The: Hospital Counseled Patient/Family Regarding: Studies Performed, Diagnosis - Disposition Disposition: HOSPITALIZED Disposition Time: 20:52 Condition: GOOD - Clinical Impression Clinical Impression: Shortness of breath, Near syncope - Scribe Statement The provider has reviewed the documentation as recorded by the Ashlie Rueda Provider Attestation: All medical record entries made by the Ashlie were at my direction and personally dictated by me. I have reviewed the chart and agree that the record accurately reflects my personal performance of the history, physical exam, medical decision making, and the department course for this patient. I have also personally directed, reviewed, and agree with the discharge instructions and disposition.
[2017-02-05 20:14] LABS: RBC URINE 2 /hpf (0-3); URINE BACTERIA RARE (<OCC); URINE BILIRUBIN NEGATIVE (NEGATIVE); URINE BLOOD NEGATIVE (NEGATIVE); URINE COLOR Straw (YELLOW); URINE GLUCOSE (UA) NORMAL (Normal); URINE KETONE NEGATIVE (NEGATIVE); URINE LEUKOCYTE ESTERASE NEG Leu/uL (Negative); URINE PROTEIN NEGATIVE (NEGATIVE); URINE UROBILINOGEN NORMAL mg/dL (0.2-1.0)
[2017-02-05] MEDS ORDERED: Albuterol-Ipratrop 3 mg / 0.5 (3 ml) UD INH STA (20:55)
[2017-02-05] MEDS ORDERED: Albuterol-Ipratrop 3 mg / 0.5 (3 ml) UD ONE (21:18)
[2017-02-06] MEDS: cefTRIAXone IV 1 gm in Dextros 50 ML IVPB SCH ×2 (00:45→22:48)
[2017-02-06] MEDS: Azithromycin 500mg/250ML NS 500 MG/250 ML BAG IVPB SCH (00:49)
--- NOTE | 2017-02-06 07:32 | RAD ---
PROCEDURE: CHEST RADIOGRAPH, 1 VIEW HISTORY: SOB COMPARISON: Comparison is made to 01/29/2017 FINDINGS: LUNGS: Interval [id number] improvement in the lungs since the previous exam. Persistent heterogeneous opacities at the mid and lower left lung. PLEURA: No evidence of significant pleural effusion or pneumothorax. CARDIOVASCULAR: Normal. Cardiac silhouette is not enlarged OSSEOUS STRUCTURES: No significant abnormalities. VISUALIZED UPPER ABDOMEN: Normal. OTHER FINDINGS: None. IMPRESSION: Interval [id number] improvement in the lungs since the previous exam.
--- NOTE | 2017-02-06 08:43 | CON ---
DATE: 02/06/2017 ATTENDING PHYSICIAN: Bekah Rueda MD REASON FOR CONSULTATION: Dizziness. CHIEF COMPLAINT: The patient was brought into [facility] with a history of dizziness. From wil rological point of view, I was called in to evaluate him for further management. HISTORY OF PRESENTING ILLNESS: The patient is a 76-year-old, right-handed, male presenting with dizziness. No history of fall, no history of trauma, no history of headache, no history of prob jonathan in swallow or focal weakness. The patient was recently admitted in [facility] and been disc harged for pneumonia. PAST MEDICAL HISTORY: COPD, emphysema, hypertension. PERSONAL HISTORY: Denies smoking or alcohol use. ALLERGIES: No known allergies. 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 REVIEW OF SYSTEMS: As per H and P. MEDICATIONS: Aspirin, ceftriaxone, methylprednisolone, azithromycin. PHYSICAL EXAMINATION: VITAL SIGNS: Blood pressure 121/66, mean arterial pressure of 84, respiratory rate 16, temperature a febrile. NECK: Supple, no carotid bruit. HEART SOUNDS: Regular. CHEST: Fair air entry. EXTREMITIES: No edema of legs. NEUROLOGIC EXAMINATION: MENTAL STATUS: He is awake, alert, oriented to person, place, and time. Speech is clear. Naming, r epetition, fluency, comprehension all within normal. CRANIAL NERVES: Visual contreras intact. Pupils reactive to light. Extraocular movement normal. No n ystagmus. No facial sensory deficit. No facial asymmetry. Hearing is normal. Tongue is midline. Good gag. MOTOR: On outstretched hands with eyes closed, no drift noted. Power is symmetric on either side. DEEP TENDON REFLEXES: Biceps, brachioradialis, triceps 1+. Both knees are 2+. Both ankles are 1+. Plantars are downgoing. SENSORY: Grossly intact. Mild sensorimotor neuropathy. COORDINATION: Bdhbvr-gltu-[id number] test is intact. Gait is normal. CONCLUSION: Upon reviewing his history and neurological examination, the patient is presenting with possible recurrent dizziness, which is probably secondary to vertebrobasilar insufficiency from neuro logical point of view the way of presentation. BLOOD WORKUP: WBC 20.4, hemoglobin 14.6, hematocrit 44.9, platelets 505. Sodium 135, potassium 4.8, chloride 97, bicarbonate 29, GFR more than 60. Urinalysis normal. RECOMMENDATIONS: His aspirin can be switched to Plavix because CT of the head is no bleeding and mil d periventricular ischemic changes noted. MRI of the brain/carotid Dopplers/EEG also recommended. Blood pressure control and weight reduction has been discussed with the patient. The patient will be followed closely with you. Dayne Vidales MD cc: [id number] TT: 02/06/2017 08:42:15 Confirmation # [id number] Dictation # [id number]
[2017-02-06 09:02] LABS: FREE T4 1.09 ng/dL (0.78-2.19)
[2017-02-06 09:16] LABS: THYROID STIMULATING HORMONE 1.06 mIU/L (0.46-4.68)
[2017-02-06] MEDS: Enoxaparin 40 mg Syringe SC SCH (09:36)
[2017-02-06 09:46] LABS: FOLATE 10.1 ng/mL
--- NOTE | 2017-02-06 10:23 | CP.PCM.PN ---
Subjective - Date & Time of Evaluation Date of Evaluation: 02/06/17 Time of Evaluation: 12:40 - Subjective Subjective: clinically same Objective - Vital Signs/Intake and Output Vital Signs (last 24 hours): Temp Pulse Resp BP Pulse Ox 97.7 F 75 20 136/70 97 02/06/17 07:12 02/06/17 07:12 02/06/17 07:12 02/06/17 07:12 02/06/17 07:12 - Medications Medications: Current Medications Clopidogrel Bisulfate (Plavix) 75 mg PO DAILY [facility] Last Admin: 02/06/17 09:36 Dose: 75 mg Enoxaparin Sodium (Lovenox) 40 mg SC DAILY [facility] Last Admin: 02/06/17 09:36 Dose: 40 mg Ceftriaxone Sodium (Rocephin Iv 1 Gm Duplex) 50 mls @ 100 mls/hr IVPB Q24H [facility] Last Admin: 02/06/17 00:45 Dose: 100 mls/hr Azithromycin (Zithromax 500mg In Ns Addvantage) 500 mg in 250 mls @ 167 mls/hr IVPB Q24H [facility] Last Admin: 02/06/17 00:49 Dose: 167 mls/hr Methylprednisolone (Solu-Medrol) 60 mg IV Q8 [facility] Last Admin: 02/06/17 06:59 Dose: 60 mg Pneumococcal Polyvalent Vaccine (Pneumovax 23 Vaccine) 0.5 ml IM .ONCE ONE Stop: 02/08/17 10:01 - Constitutional Appears: Well - Head Exam Head Exam: ATRAUMATIC, NORMAL INSPECTION, NORMOCEPHALIC - Eye Exam Eye Exam: EOMI, Normal appearance, PERRL Pupil Exam: NORMAL ACCOMODATION, PERRL - ENT Exam ENT Exam: Mucous Membranes Moist, Normal Exam - Neck Exam Neck Exam: Full ROM, Normal Inspection. absent: Lymphadenopathy - Respiratory Exam Respiratory Exam: Decreased Breath Sounds - Cardiovascular Exam Cardiovascular Exam: REGULAR RHYTHM, +S1, +S2 - GI/Abdominal Exam GI & Abdominal Exam: Soft, Diminished Bowel Sounds - Rectal Exam Rectal Exam: Deferred
--- NOTE | 2017-02-06 11:45 | CP.PCM.CON ---
History of Present Illness - History of Present Illness History of Present Illness: CC: near syncope, SOB and CP Patient is a 76 y/o male that is brought to the ED by EMS for evaluation of near syncopal episode, dizziness, and chest pain. Patient was recently admitted , from 01/29-02/02 for pneumonia. Otherwise, denies any shortness of breath, palpitations, lightheadedness, headache, extremity weakness/numbness, or any other associated symptoms at this time. Ches pain was described as L. sided, sharp with deep breath. No diaphoresis. No fevers or cough. In addition dizziness is random with sudden movements and also reports imbalance with walking: but no fall or trauma. PMHX: Mild chronic HTN, unknown LIPIDS, No DM, COPD: Ex smokler, No ME, No CVA No reported LIVER, Kidnet, Thyroid, Prostate problems; No Hx of Cancer or bleeding/clotting problems. 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 Review of Systems - Review of Systems All systems: reviewed and no additional remarkable complaints except Past Patient History - Past Medical History & Family History Past Medical History?: Yes - Past Social History Smoking Status: Never Smoked - CARDIAC Hx Hypertension: Yes - PULMONARY Hx Asthma: Yes Hx Chronic Obstructive Pulmonary Disease (COPD): Yes (Emphysema) Hx Emphysema: Yes - NEUROLOGICAL Hx Neurological Disorder: No - HEENT Hx HEENT Problems: No - RENAL Hx Chronic Kidney Disease: No - ENDOCRINE/METABOLIC Hx Endocrine Disorders: No - HEMATOLOGICAL/ONCOLOGICAL Hx Blood Transfusions: No - INTEGUMENTARY Hx Dermatological Problems: No - MUSCULOSKELETAL/RHEUMATOLOGICAL Hx Falls: No - GASTROINTESTINAL Hx Gastrointestinal Disorders: No - GENITOURINARY/GYNECOLOGICAL Hx Genitourinary Disorders: No - PSYCHIATRIC Hx Substance Use: No - SURGICAL HISTORY Hx Surgeries: Yes Hx Herniorrhaphy: Yes - ANESTHESIA Hx Anesthesia: Yes Hx Anesthesia Reactions: No Hx Malignant Hyperthermia: No Meds Allergies/Adverse Reactions: Allergies Allergy/AdvReac Type Severity Reaction Status Date / Time pollen extracts Allergy Verified 02/05/17 18:15 - Medications Medications: Current Medications Clopidogrel Bisulfate (Plavix) 75 mg PO DAILY [facility] Last Admin: 02/06/17 09:36 Dose: 75 mg Enoxaparin Sodium (Lovenox) 40 mg SC DAILY [facility] Last Admin: 02/06/17 09:36 Dose: 40 mg Ceftriaxone Sodium (Rocephin Iv 1 Gm Duplex) 50 mls @ 100 mls/hr IVPB Q24H [facility] Last Admin: 02/06/17 00:45 Dose: 100 mls/hr Azithromycin (Zithromax 500mg In Ns Addvantage) 500 mg in 250 mls @ 167 mls/hr IVPB Q24H [facility] Last Admin: 02/06/17 00:49 Dose: 167 mls/hr Methylprednisolone (Solu-Medrol) 60 mg IV Q8 [facility] Last Admin: 02/06/17 06:59 Dose: 60 mg Pneumococcal Polyvalent Vaccine (Pneumovax 23 Vaccine) 0.5 ml IM .ONCE ONE Stop: 02/08/17 10:01 Physical Exam - Constitutional Appears: Older Than Stated Age - Head Exam Head Exam: ATRAUMATIC, NORMAL INSPECTION, NORMOCEPHALIC - ENT Exam ENT Exam: Mucous Membranes Moist, Normal Exam - Neck Exam Neck exam: Positive for: Normal Inspection. Negative for: Tenderness, Thyromegaly - Respiratory Exam Respiratory Exam: Rhonchi (scattered), Wheezes (mild), NORMAL BREATHING PATTERN. absent: Chest Wall Tenderness - Cardiovascular Exam Cardiovascular Exam: REGULAR RHYTHM, +S1, +S2. absent: +S4, Systolic Murmur - Extremities Exam Extremities exam: Positive for: normal inspection. Negative for: calf tenderness, pedal edema - Neurological Exam Neurological exam: Alert, Oriented x3 - Psychiatric Exam Psychiatric exam: Normal Affect, Normal Mood - Skin Skin Exam: Normal Color, Warm - Additional Findings Additional findings: soft carotid bruits B/L R>L. Results - Vital Signs Recent Vital Signs: Last Vital Signs Temp 97.7 F 02/06/17 07:12 Pulse 75 02/06/17 07:12 Resp 20 02/06/17 07:12 BP 136/70 02/06/17 07:12 Pulse Ox 97 02/06/17 07:12 - Labs Result Diagrams: 02/05/17 19:25 02/05/17 19:25 Labs: Laboratory Results - last 24 hr 02/06/17 02/06/17 02/06/17 08:13 08:13 08:13 ESR 21 H Hemoglobin A1c 5.5 C-React Prot High Sens 1.97 Vitamin B12 Folate Free T4 1.09 TSH 3rd Generation 1.06 Prolactin 02/06/17 08:13 ESR Hemoglobin A1c C-React Prot High Sens Vitamin B12 270 Folate 10.1 Free T4 TSH 3rd Generation Prolactin 6.7 - EKG Data EKG Interpreted by: Myself (NSR, BDLN LVH, non-specific changes) EKG shows normal: Sinus rhythm - Imaging and Cardiology Chest x-ray Status: Image reviewed by me (Resolving changes from prior CXRAY which was positive for small b/l effusion possible mildPNA) Assessment & Plan - Assessment and Plan (Free Text) Assessment: 76 y/o with CP, SOB, Dizziness, Imbalance; 1. EKG not suspicious for any arrythmia or ischemia, BDLB LVH and non-specific changes 2. EXAM: mild soft B/l carotid bruits, normal cardiac auscultation, no edema, JVD or signs of PAD/Venous disease/LE ulcers 3. NT-PBNP: not in range for CHF systolic 4. Normal H/H, Creat and resolved hyperkalemia 5. leukocytosis may be related to steroids * patient currently is chest pain free and not SOB: Neuro w/u with MRI and carotids pending: I suggest echo to eval cardiac structure and function I would suggest ARB-HCTZ be continued for HTN and monitor K+... I also suggest fasting lipids and Statin if LDL >130 along with ASA or Plavix but not both as this is not ACS PT Additional recc will be dictated by echo.
--- NOTE | 2017-02-06 12:13 | MRI ---
PROCEDURE: MRI BRAIN WITHOUT CONTRAST HISTORY: stroke Vs mass COMPARISON: Comparison is made to the previous CT dated 02/05/2017 TECHNIQUE: Multiplanar, multisequence MR images of the brain were obtained without intravenous contrast enhancement. FINDINGS: HEMORRHAGE: None DWI: No evidence of an acute or early subacute infarction. BRAIN PARENCHYMA: There basilar focal of hyperintense T2 and FLAIR signal at or adjacent to the posterior corpus callosum/splenium of uncertain etiology seen on image 13 series 6 moderate atrophy is noted. No significant white matter changes otherwise noted. VENTRICLES: Unremarkable. No hydrocephalus. CRANIUM: Unremarkable. ORBITS: Grossly unremarkable. PARANASAL SINUSES/MASTOIDS: Clear VASCULAR SYSTEM: Skull base flow voids intact. OTHER FINDINGS: None. IMPRESSION: No evidence of acute or subacute infarct. No evidence of acute intracranial hemorrhage intracranial collection mass effect or midline shift. Focal hyperintense T2 and FLAIR signal seen at or adjacent to the posterior corpus callosum/ corpus callosum splenium of uncertain etiology without evidence of adjacent mass effect. [id number] atrophy.
--- NOTE | 2017-02-06 15:22 | CP.PCM.CON ---
Past Patient History - Past Medical History & Family History Past Medical History?: Yes - Past Social History Smoking Status: Never Smoked - CARDIAC Hx Hypertension: Yes - PULMONARY Hx Asthma: Yes Hx Chronic Obstructive Pulmonary Disease (COPD): Yes (Emphysema) Hx Emphysema: Yes - NEUROLOGICAL Hx Neurological Disorder: No - HEENT Hx HEENT Problems: No - RENAL Hx Chronic Kidney Disease: No - ENDOCRINE/METABOLIC Hx Endocrine Disorders: No - HEMATOLOGICAL/ONCOLOGICAL Hx Blood Transfusions: No - INTEGUMENTARY Hx Dermatological Problems: No - MUSCULOSKELETAL/RHEUMATOLOGICAL Hx Falls: No - GASTROINTESTINAL Hx Gastrointestinal Disorders: No - GENITOURINARY/GYNECOLOGICAL Hx Genitourinary Disorders: No - PSYCHIATRIC Hx Substance Use: No - SURGICAL HISTORY Hx Surgeries: Yes Hx Herniorrhaphy: Yes - ANESTHESIA Hx Anesthesia: Yes Hx Anesthesia Reactions: No Hx Malignant Hyperthermia: No Meds Allergies/Adverse Reactions: Allergies Allergy/AdvReac Type Severity Reaction Status Date / Time pollen extracts Allergy Verified 02/05/17 18:15 - Medications Medications: Current Medications Clopidogrel Bisulfate (Plavix) 75 mg PO DAILY [facility] Last Admin: 02/06/17 09:36 Dose: 75 mg Enoxaparin Sodium (Lovenox) 40 mg SC DAILY [facility] Last Admin: 02/06/17 09:36 Dose: 40 mg Ceftriaxone Sodium (Rocephin Iv 1 Gm Duplex) 50 mls @ 100 mls/hr IVPB Q24H [facility] Last Admin: 02/06/17 00:45 Dose: 100 mls/hr Azithromycin (Zithromax 500mg In Ns Addvantage) 500 mg in 250 mls @ 167 mls/hr IVPB Q24H [facility] Last Admin: 02/06/17 00:49 Dose: 167 mls/hr Methylprednisolone (Solu-Medrol) 60 mg IV Q8 [facility] Last Admin: 02/06/17 14:07 Dose: 60 mg Pneumococcal Polyvalent Vaccine (Pneumovax 23 Vaccine) 0.5 ml IM .ONCE ONE Stop: 02/08/17 10:01 Results - Vital Signs Recent Vital Signs: Last Vital Signs Temp 97.7 F 02/06/17 07:12 Pulse 75 02/06/17 07:12 Resp 20 02/06/17 07:12 BP 136/70 02/06/17 07:12 Pulse Ox 97 02/06/17 07:12 - Labs Result Diagrams: 02/05/17 19:25 02/05/17 19:25 Labs: Laboratory Results - last 24 hr 02/06/17 02/06/17 02/06/17 08:13 08:13 08:13 ESR 21 H Hemoglobin A1c 5.5 C-React Prot High Sens 1.97 Vitamin B12 Folate Free T4 1.09 TSH 3rd Generation 1.06 Prolactin 02/06/17 08:13 ESR Hemoglobin A1c C-React Prot High Sens Vitamin B12 270 Folate 10.1 Free T4 TSH 3rd Generation Prolactin 6.7
--- NOTE | 2017-02-06 22:12 | CP.PCM.HP ---
History of Present Illness - History of Present Illness History of Present Illness: 76-year-old male with history of asthma COPD emphysema hypertension came in because of almost passed out with some chest pain that are nonspecific and mild dizziness without nausea vomiting diarrhea fever seizure-like activity patient was recently discharged after the treatment for the pneumonia eventually patient was readmitted patient's vital signs was 98.383 on arrival pulse rate 20 respirations patient's eventually was evaluated by the ER doctor WBC was 20.2 and I decided to hospitalize the patient Present on Admission - Present on Admission Any Indicators Present on Admission: No Past Patient History - Past Medical History & Family History Past Medical History?: Yes - Past Social History Smoking Status: Never Smoked - CARDIAC Hx Hypertension: Yes - PULMONARY Hx Asthma: Yes Hx Chronic Obstructive Pulmonary Disease (COPD): Yes (Emphysema) Hx Emphysema: Yes - NEUROLOGICAL Hx Neurological Disorder: No - HEENT Hx HEENT Problems: No - RENAL Hx Chronic Kidney Disease: No - ENDOCRINE/METABOLIC Hx Endocrine Disorders: No - HEMATOLOGICAL/ONCOLOGICAL Hx Blood Transfusions: No - INTEGUMENTARY Hx Dermatological Problems: No - MUSCULOSKELETAL/RHEUMATOLOGICAL Hx Falls: No - GASTROINTESTINAL Hx Gastrointestinal Disorders: No - GENITOURINARY/GYNECOLOGICAL Hx Genitourinary Disorders: No - PSYCHIATRIC Hx Substance Use: No - SURGICAL HISTORY Hx Surgeries: Yes Hx Herniorrhaphy: Yes - ANESTHESIA Hx Anesthesia: Yes Hx Anesthesia Reactions: No Hx Malignant Hyperthermia: No Meds Home Medications: Home Medication List Medication Instructions Recorded Confirmed Type Azithromycin [Z-Nelson] 250 mg PO DAILY #6 tab 02/09/17 Rx RX: Clopidogrel [Plavix] 75 mg PO DAILY 30 Days 02/09/17 Rx RX: Methylprednisolone [Medrol 4 mg PO DAILY #21 mg 02/09/17 Rx Dose Pack (21 tabs)] RX: Rosuvastatin Calcium [Crestor] 10 mg PO HS tab 02/09/17 Rx RX: hydroCHLOROthiazide [Microzide] 12.5 mg PO DAILY cap 02/09/17 Rx Allergies/Adverse Reactions: Allergies Allergy/AdvReac Type Severity Reaction Status Date / Time pollen extracts Allergy Verified 02/05/17 18:15 Results - Vital Signs Recent Vital Signs: Last Vital Signs Temp 98.0 F 02/06/17 16:00 Pulse 86 02/06/17 16:00 Resp 21 02/06/17 16:00 BP 145/68 02/06/17 16:00 Pulse Ox 95 02/06/17 16:00 - Labs Result Diagrams: 02/09/17 14:30 02/09/17 14:30 Labs: Laboratory Results - last 24 hr 02/06/17 02/06/17 02/06/17 08:13 08:13 08:13 ESR 21 H Hemoglobin A1c 5.5 C-React Prot High Sens 1.97 Vitamin B12 Folate Free T4 1.09 TSH 3rd Generation 1.06 Prolactin RPR 02/06/17 02/06/17 08:13 08:13 ESR Hemoglobin A1c C-React Prot High Sens Vitamin B12 270 Folate 10.1 Free T4 TSH 3rd Generation Prolactin 6.7 RPR Nonreactive Assessment & Plan (1) Chronic congestive heart failure Status: Acute (2) Emphysema of lung Status: Acute (3) Near syncope Status: Acute (4) Pneumonia Status: Acute (5) Shortness of breath Status: Acute (6) Shortness of breath Status: Acute - Assessment and Plan (Free Text) Plan: Continue IV antibiotic Rocephin and Zithromax pulmonary as needed Continue home medication reconciliation We will review the x-ray Continue as ordered
[2017-02-06] MEDS: MethylPREDNISolone 40 mg Vial IVP SCH (22:48)
[2017-02-07] MEDS: Azithromycin 500mg/250ML NS 500 MG/250 ML BAG IVPB SCH (00:15)
[2017-02-07] MEDS: MethylPREDNISolone 40 mg Vial IVP SCH ×4 (05:18→22:22)
[2017-02-07] MEDS: Albuterol-Ipratrop 3 mg / 0.5 (3 ml) UD INH SCH ×3 (08:15→20:03)
[2017-02-07] MEDS: Enoxaparin 40 mg Syringe SC SCH (09:21)
[2017-02-07] MEDS: Aspirin 325 mg EC Tablets PO SCH (09:21)
[2017-02-07] MEDS ORDERED: Fluticasone-Salmeterol 250-50mcg Diskus IH SCH (10:00)
--- NOTE | 2017-02-07 10:26 | CP.PCM.PN ---
Subjective - Date & Time of Evaluation Date of Evaluation: 02/07/17 Time of Evaluation: 10:25 - Subjective Subjective: Events reviewed Objective - Vital Signs/Intake and Output Vital Signs (last 24 hours): Temp Pulse Resp BP Pulse Ox 98.0 F 71 18 128/72 99 02/07/17 07:51 02/07/17 07:51 02/07/17 07:51 02/07/17 07:51 02/07/17 07:51 Intake and Output: 02/07/17 02/07/17 06:59 18:59 Intake Total 275 Balance 275 - Medications Medications: Current Medications Albuterol/Ipratropium (Duoneb 3 Mg/0.5 Mg (3 Ml) Ud) 3 ml INH RQ6 [facility] Last Admin: 02/07/17 08:15 Dose: 3 ml Aspirin (Ecotrin) 325 mg PO DAILY [facility] Last Admin: 02/07/17 09:21 Dose: 325 mg Clopidogrel Bisulfate (Plavix) 75 mg PO DAILY [facility] Last Admin: 02/07/17 09:21 Dose: 75 mg Enoxaparin Sodium (Lovenox) 40 mg SC DAILY [facility] Last Admin: 02/07/17 09:21 Dose: 40 mg Hydrochlorothiazide (Microzide) 12.5 mg PO DAILY [facility] Last Admin: 02/07/17 09:21 Dose: 12.5 mg Ceftriaxone Sodium (Rocephin Iv 1 Gm Duplex) 50 mls @ 100 mls/hr IVPB Q24H [facility] Last Admin: 02/06/17 22:48 Dose: 100 mls/hr Azithromycin (Zithromax 500mg In Ns Addvantage) 500 mg in 250 mls @ 167 mls/hr IVPB Q24H [facility] Last Admin: 02/07/17 00:15 Dose: 167 mls/hr Losartan Potassium (Cozaar) 100 mg PO DAILY [facility] Last Admin: 02/07/17 09:21 Dose: 100 mg Methylprednisolone (Solu-Medrol) 60 mg IV Q8 [facility] Last Admin: 02/07/17 06:01 Dose: Not Given Methylprednisolone (Solu-Medrol) 40 mg IVP Q8 [facility] Last Admin: 02/07/17 06:01 Dose: 40 mg Pneumococcal Polyvalent Vaccine (Pneumovax 23 Vaccine) 0.5 ml IM .ONCE ONE Stop: 05/14/17 10:01 Fluticasone/Salmeterol (Advair Diskus 250/50) 1 puff IH RBID ROBERTA Assessment and Plan - Assessment and Plan (Free Text) Assessment: 2D echo images viewed by me: EF 65%; stage I diasotlic dysfunction; Concentric LVh 76 y/o with CP, SOB, Dizziness, Imbalance suspicious CVA 1. 2D echo shows hypertensive heart disesae, optimize blood pressure as per neurology; anti platelet and statin for primary prophylaxsis. 2. EXAM: mild soft B/l carotid bruits, normal cardiac auscultation, no edema, JVD or signs of PAD/Venous disease/LE ulcers 3. NT-PBNP: not in range for CHF systolic 4. Normal H/H, Creat and resolved hyperkalemia 5. leukocytosis may be related to steroids Call back as needed
--- NOTE | 2017-02-07 13:51 | CARD ---
APPROVED REPORT EXAM: Two-dimensional and M-mode echocardiogram with Doppler and color Doppler. Other Information Quality : GoodRhythm : INDICATION Dizziness and Vertigo Dyspnea Chest Pain Syncope RISK FACTORS Hypertension M-Mode DIMENSIONS RVDd2.44 (2.1-3.2cm)Left Atrium (MM)3.90 (2.5-4.0cm) IVSd1.04 (0.7-1.1cm)Aortic Root3.03 (2.2-3.7cm) LVDd4.46 (4.0-5.6cm)Aortic Cusp Exc.1.79 (1.5-2.0cm) PWd1.17 (0.7-1.1cm)FS (%) 51 % LVDs2.18 (2.0-3.8cm)LVEF (%)82 (>50%) Mitral Valve MV E Dqahjdxg19.9cm/sMV A Zfahkufp166.4cm/sE/A ratio0.6 TDI E/Lateral E'0.0E/Medial E'0.0 Tricuspid Valve TR Peak Awqknhuz299oz/sTR Peak Gr.[id number] LEFT VENTRICLE The left ventricle is normal size. There is mild concentric left ventricular hypertrophy. The left ventricular function is normal. The left ventricular ejection fraction is within the normal range. There is normal LV segmental wall motion. Transmitral Doppler flow pattern is Grade I-abnormal relaxation pattern. No left ventricle thrombus noted on this study. There is no ventricular septal defect visualized. There is no left ventricular aneurysm. There is no mass noted in the left ventricle. RIGHT VENTRICLE The right ventricle is normal size. There is normal right ventricular wall thickness. The right ventricular systolic function is normal. ATRIA The left atrium size is normal. The right atrium size is normal. The interatrial septum is intact with no evidence for an atrial septal defect. AORTIC VALVE The aortic valve is mildly calcified. The aortic valve is moderately sclerotic. No aortic regurgitation is present. There is no aortic valvular stenosis. There is no aortic valvular vegetation. MITRAL VALVE Mitral annular calcification is mild. There is no evidence of mitral valve prolapse. There is no mitral valve stenosis. There is no mitral valve regurgitation noted. TRICUSPID VALVE The tricuspid valve is normal in structure There is mild tricuspid regurgitation. PAP = 30-40 RAP = 0-5 There is no tricuspid valve prolapse or vegetation. There is no tricuspid valve stenosis. PULMONIC VALVE The pulmonary valve is normal in structure There is mild pulmonic valvular regurgitation. There is no pulmonic valvular stenosis. GREAT VESSELS The aortic root is normal in size. The ascending aorta is normal in size. The pulmonary artery is normal. The IVC is normal in size and collapses >50% with inspiration. PERICARDIAL EFFUSION The pericardium appears normal. There is no pleural effusion. <Conclusion> There is mild concentric left ventricular hypertrophy. Transmitral Doppler flow pattern is Grade I-abnormal relaxation pattern. The aortic valve is mildly calcified. The aortic valve is moderately sclerotic. Mitral annular calcification is mild. There is mild tricuspid regurgitation. There is mild pulmonic valvular regurgitation. PAP = 30-40 RAP = 0-5
--- NOTE | 2017-02-07 14:46 | CP.PCM.PN ---
Subjective - Date & Time of Evaluation Date of Evaluation: 02/07/17 Time of Evaluation: 13:20 - Subjective Subjective: clinically same Objective - Vital Signs/Intake and Output Vital Signs (last 24 hours): Temp Pulse Resp BP Pulse Ox 98.0 F 68 18 128/72 99 02/07/17 07:51 02/07/17 08:00 02/07/17 07:51 02/07/17 07:51 02/07/17 07:51 Intake and Output: 02/07/17 02/07/17 06:59 18:59 Intake Total 275 Balance 275 - Medications Medications: Current Medications Albuterol/Ipratropium (Duoneb 3 Mg/0.5 Mg (3 Ml) Ud) 3 ml INH RQ6 [facility] Last Admin: 02/07/17 13:21 Dose: 3 ml Aspirin (Ecotrin) 325 mg PO DAILY [facility] Last Admin: 02/07/17 09:21 Dose: 325 mg Clopidogrel Bisulfate (Plavix) 75 mg PO DAILY [facility] Last Admin: 02/07/17 09:21 Dose: 75 mg Enoxaparin Sodium (Lovenox) 40 mg SC DAILY [facility] Last Admin: 02/07/17 09:21 Dose: 40 mg Hydrochlorothiazide (Microzide) 12.5 mg PO DAILY [facility] Last Admin: 02/07/17 09:21 Dose: 12.5 mg Ceftriaxone Sodium (Rocephin Iv 1 Gm Duplex) 50 mls @ 100 mls/hr IVPB Q24H [facility] Last Admin: 02/06/17 22:48 Dose: 100 mls/hr Azithromycin (Zithromax 500mg In Ns Addvantage) 500 mg in 250 mls @ 167 mls/hr IVPB Q24H [facility] Last Admin: 02/07/17 00:15 Dose: 167 mls/hr Losartan Potassium (Cozaar) 100 mg PO DAILY [facility] Last Admin: 02/07/17 09:21 Dose: 100 mg Methylprednisolone (Solu-Medrol) 60 mg IV Q8 [facility] Last Admin: 02/07/17 06:01 Dose: Not Given Methylprednisolone (Solu-Medrol) 40 mg IVP Q8 [facility] Last Admin: 02/07/17 06:01 Dose: 40 mg Pneumococcal Polyvalent Vaccine (Pneumovax 23 Vaccine) 0.5 ml IM .ONCE ONE Stop: 05/14/17 10:01 Fluticasone/Salmeterol (Advair Diskus 250/50) 1 puff IH RBID ROBERTA - Constitutional Appears: Well - Head Exam Head Exam: ATRAUMATIC, NORMAL INSPECTION, NORMOCEPHALIC - Eye Exam Eye Exam: EOMI, Normal appearance, PERRL Pupil Exam: NORMAL ACCOMODATION, PERRL - ENT Exam ENT Exam: Mucous Membranes Moist, Normal Exam - Neck Exam Neck Exam: Full ROM, Normal Inspection. absent: Lymphadenopathy - Respiratory Exam Respiratory Exam: Decreased Breath Sounds - Cardiovascular Exam Cardiovascular Exam: REGULAR RHYTHM, +S1, +S2 - GI/Abdominal Exam GI & Abdominal Exam: Soft, Diminished Bowel Sounds - Rectal Exam Rectal Exam: Deferred Assessment and Plan - Assessment and Plan (Free Text) Plan: Consult neurology Consult pulmonology EKG normal 2D echo shows hypertensive heart disease Lovenox Plavix Rocephin Zithromax
[2017-02-07] MEDS ORDERED: Azithromycin 500 MG in Sodium Chloride 0.9% 250 ML IVPB SCH (15:15)
[2017-02-07] MEDS: cefTRIAXone IV 1 gm in Dextros 50 ML IVPB SCH (22:30)
[2017-02-07] MEDS: Azithromycin 500 MG in Sodium Chloride 0.9% 250 ML IVPB SCH (23:53)
[2017-02-08] MEDS: Albuterol-Ipratrop 3 mg / 0.5 (3 ml) UD INH SCH ×4 (01:51→19:42)
[2017-02-08 02:23] VITALS: RESP 20
[2017-02-08] MEDS: MethylPREDNISolone 40 mg Vial IVP SCH ×3 (05:41→22:05)
[2017-02-08 08:11] LABS: BASO % 0.1 % (0.0-2.0); HEMATOCRIT 40.2 % (35.0-51.0); LYMPH % 29.7 % (20.0-40.0); MEAN CELL VOLUME 86.3 fL (80.0-94.0); MEAN CORPUSCULAR HGB CONC 32.5 g/dL (33.0-37.0); MEAN PLATELET VOLUME 7.7 fL (7.2-11.7); MONO # 0.6 K/uL (0.0-0.8); MONO % 2.9 % (0.0-10.0); RED CELL DISTRIBUTION WIDTH 14.3 % (11.5-14.5); WHITE BLOOD COUNT 20.2 K/uL (4.8-10.8)
[2017-02-08 08:27] LABS: CHLORIDE 97 mmol/L (98-107); POTASSIUM 4.1 mmol/L (3.6-5.2); SODIUM 134 mmol/L (132-148)
[2017-02-08 08:29] LABS: GFR AFRICAN-AMERICAN > 60
[2017-02-08 08:30] LABS: BLOOD UREA NITROGEN 26 mg/dL (9-20); CARBON DIOXIDE 28 mmol/L (22-30); GLUCOSE,RANDOM 110 mg/dL (75-110)
[2017-02-08 08:31] LABS: CALCIUM 8.5 mg/dl (8.6-10.4)
[2017-02-08] MEDS: Aspirin 325 mg EC Tablets PO SCH (09:27)
[2017-02-08] MEDS: Enoxaparin 40 mg Syringe SC SCH (09:27)
--- NOTE | 2017-02-08 09:28 | VASCLAB ---
PROCEDURE: HISTORY: assess stenosis COMPARISON: None available. TECHNIQUE: Grayscale and duplex Doppler evaluation of the cervical carotid and vertebral arteries were performed. The common carotid, carotid bifurcations and cervical Internal Carotid Artery (ICA) and proximal External Carotid Artery (ECA) were evaluated. The vertebral arteries were evaluated for gross patency and flow direction. Report prepared by Harvey Calero, BS, RVT FINDINGS: RIGHT CAROTID ARTERIES: 1. Common Carotid Artery: Mild irregular eccentric plaque formation of the right common carotid artery. Intimal hyperplasia. Maximum Peak Systolic velocity: 84 cm/sec: End-diastolic velocity 16 cm/sec. 2. Carotid Bifurcation: Mild heterogeneous plaque formation. Maximum Peak Systolic velocity: 114 cm/sec: End-diastolic velocity 12 cm/sec. 3. Internal Carotid Artery: Mild heterogeneous plaque 3.1. Proximal Segment: Peak systolic velocity 90 cm/sec: End-diastolic velocity 19 cm/sec - % stenosis 0-15% 3.2. Middle Segment: Peak systolic velocity 80 cm/sec: End-diastolic velocity 19 cm/sec - % stenosis 0-15% 3.3. Distal Segment: Peak systolic velocity 63 cm/sec: End-diastolic velocity 12 cm/sec - % stenosis 0-15% 4. External Carotid Artery: No significant focal plaque formation. Peak systolic velocity 191 cm/sec 5. ICA/CCA Ratio: 1.4 LEFT CAROTID ARTERIES: 1. Common Carotid Artery: No significant focal plaque formation of the left common carotid artery. Intimal hyperplasia. Maximum Peak Systolic velocity: 95 cm/sec: End-diastolic velocity 18 cm/sec. 2. Carotid Bifurcation: Mild heterogeneous plaque formation. Maximum Peak Systolic velocity: 95 cm/sec: End-diastolic velocity 18 cm/sec. 3. Internal Carotid Artery: Mild irregular heterogeneous plaque in the proximal segment. Tortuous course. 3.1. Proximal Segment: Peak systolic velocity 95 cm/sec: End-diastolic velocity 25 cm/sec - % stenosis 0-15% 3.2. Middle Segment: Peak systolic velocity 60 cm/sec: End-diastolic velocity 14 cm/sec - % stenosis 0-15% 3.3. Distal Segment: Peak systolic velocity 140 cm/sec: End-diastolic velocity 22 cm/sec - % stenosis 0-15% 4. External Carotid Artery: Heterogeneous plaque formation. Peak systolic velocity 424 cm/sec 5. ICA/CCA Ratio: 1.5 VERTEBRAL ARTERIES: 1. Right Vertebral Artery: The right vertebral artery flow direction is antegrade. 2. Left Vertebral Artery: The left vertebral artery flow direction is antegrade. OTHER FINDINGS: 1. Right Brachial Blood pressure: 144 mmHg. 2. Left Brachial Blood pressure: 140 mmHg. IMPRESSION: RIGHT: Duplex scan does not suggest hemodynamically significant stenosis of the right extracranial carotid arteries. LEFT: Duplex scan does not suggest hemodynamically significant stenosis of the left extracranial carotid arteries.
[2017-02-08] MEDS ORDERED: Pneumococcal 23-Valent Vaccine IM ONE (10:00)
--- NOTE | 2017-02-08 10:20 | CP.PCM.PN ---
Objective - Vital Signs/Intake and Output Vital Signs (last 24 hours): Temp Pulse Resp BP Pulse Ox 97.5 F L 88 20 157/78 H 97 02/07/17 23:40 02/08/17 00:30 02/07/17 23:40 02/07/17 23:40 02/07/17 23:40 Intake and Output: 02/08/17 02/08/17 06:59 18:59 Intake Total 490 Output Total 650 Balance -160 - Medications Medications: Current Medications Albuterol/Ipratropium (Duoneb 3 Mg/0.5 Mg (3 Ml) Ud) 3 ml INH RQ6 [facility] Last Admin: 02/08/17 08:06 Dose: 3 ml Aspirin (Ecotrin) 325 mg PO DAILY [facility] Last Admin: 02/08/17 09:27 Dose: 325 mg Clopidogrel Bisulfate (Plavix) 75 mg PO DAILY [facility] Last Admin: 02/08/17 09:27 Dose: 75 mg Enoxaparin Sodium (Lovenox) 40 mg SC DAILY [facility] Last Admin: 02/08/17 09:27 Dose: 40 mg Hydrochlorothiazide (Microzide) 12.5 mg PO DAILY [facility] Last Admin: 02/08/17 09:27 Dose: 12.5 mg Ceftriaxone Sodium (Rocephin Iv 1 Gm Duplex) 50 mls @ 100 mls/hr IVPB Q24H [facility] Last Admin: 02/07/17 22:30 Dose: 100 mls/hr Azithromycin 500 mg/ Sodium (Chloride) 250 mls @ 167 mls/hr IVPB Q24H [facility] Last Admin: 02/07/17 23:53 Dose: 167 mls/hr Losartan Potassium (Cozaar) 100 mg PO DAILY [facility] Last Admin: 02/08/17 09:27 Dose: 100 mg Methylprednisolone (Solu-Medrol) 40 mg IVP Q8 [facility] Last Admin: 02/08/17 05:41 Dose: 40 mg Fluticasone/Salmeterol (Advair Diskus 250/50) 1 puff IH RBID [facility] - Labs Labs: 02/08/17 08:02 02/08/17 08:02
--- NOTE | 2017-02-08 16:26 | CP.PCM.PN ---
Subjective - Date & Time of Evaluation Date of Evaluation: 02/08/17 Time of Evaluation: 08:20 - Subjective Subjective: Clinically same continue IV antibiotic afebrile Objective - Vital Signs/Intake and Output Vital Signs (last 24 hours): Temp Pulse Resp BP Pulse Ox 97.7 F 81 20 146/68 96 02/08/17 08:00 02/08/17 08:00 02/08/17 08:00 02/08/17 08:00 02/08/17 08:00 Intake and Output: 02/08/17 02/08/17 06:59 18:59 Intake Total 490 Output Total 650 Balance -160 - Medications Medications: Current Medications Albuterol/Ipratropium (Duoneb 3 Mg/0.5 Mg (3 Ml) Ud) 3 ml INH RQ6 [facility] Last Admin: 02/08/17 13:20 Dose: 3 ml Aspirin (Ecotrin) 325 mg PO DAILY [facility] Last Admin: 02/08/17 09:27 Dose: 325 mg Clopidogrel Bisulfate (Plavix) 75 mg PO DAILY [facility] Last Admin: 02/08/17 09:27 Dose: 75 mg Enoxaparin Sodium (Lovenox) 40 mg SC DAILY [facility] Last Admin: 02/08/17 09:27 Dose: 40 mg Hydrochlorothiazide (Microzide) 12.5 mg PO DAILY [facility] Last Admin: 02/08/17 09:27 Dose: 12.5 mg Ceftriaxone Sodium (Rocephin Iv 1 Gm Duplex) 50 mls @ 100 mls/hr IVPB Q24H [facility] Last Admin: 02/07/17 22:30 Dose: 100 mls/hr Azithromycin 500 mg/ Sodium (Chloride) 250 mls @ 167 mls/hr IVPB Q24H [facility] Last Admin: 02/07/17 23:53 Dose: 167 mls/hr Losartan Potassium (Cozaar) 100 mg PO DAILY [facility] Last Admin: 02/08/17 09:27 Dose: 100 mg Methylprednisolone (Solu-Medrol) 40 mg IVP Q8 [facility] Last Admin: 02/08/17 13:46 Dose: 40 mg Fluticasone/Salmeterol (Advair Diskus 250/50) 1 puff IH RBID [facility] - Labs Labs: 02/08/17 08:02 02/08/17 08:02 Assessment and Plan (1) Chronic congestive heart failure Status: Acute (2) Emphysema of lung Status: Acute (3) Near syncope Status: Acute (4) Pneumonia Status: Acute (5) Shortness of breath Status: Acute (6) Shortness of breath Status: Acute - Assessment and Plan (Free Text) Plan: Follow-up with cardiology Follow-up with pulmonology continue aspirin Plavix Duoneb Rocephin Zithromax Codorcas
[2017-02-08] MEDS: cefTRIAXone IV 1 gm in Dextros 50 ML IVPB SCH (22:05)
[2017-02-09] MEDS: Azithromycin 500 MG in Sodium Chloride 0.9% 250 ML IVPB SCH (00:03)
[2017-02-09] MEDS: Albuterol-Ipratrop 3 mg / 0.5 (3 ml) UD INH SCH ×3 (01:44→13:25)
[2017-02-09] MEDS: MethylPREDNISolone 40 mg Vial IVP SCH ×2 (05:39→14:03)
--- NOTE | 2017-02-09 07:38 | EEG ---
DATE: 02/06/2017 This is a 16-channel electroencephalogram of awake and drowsy adult. During the study, photic stimul ation was performed. Hyperventilation was not performed. The resting electroencephalogram consists of low amplitude 20-30 microvolt, 9-12 Hz. Alpha activitie s seen at parietal and occipital leads. These activities are well organized. Symmetrically attenuat ed with eye opening. Intermittent movement as well as a muscle artifact contaminated the background rhythm. The photic stimulation did not evoke driving response noted at 2-20 Hz. IMPRESSION: This is a normal electroencephalogram of awake and drowsy adult. During the study, neit her electroencephalographic paroxysmal activities nor focal slowing noted. The electroencephalogram shows a normal sinus rhythm throughout the recording. Dayne Vidales MD cc: [id number] TT: 02/08/2017 08:18:22 Confirmation # [id number] Dictation # [id number] nino
[2017-02-09] MEDS: Enoxaparin 40 mg Syringe SC SCH (09:19)
[2017-02-09] MEDS: Aspirin 325 mg EC Tablets PO SCH (09:19)
--- NOTE | 2017-02-09 11:38 | CARD ---
APPROVED REPORT EKG Measurement Heart [id number] CT [id number] <Conclusion> Normal sinus rhythm Moderate voltage criteria for LVH, may be normal variant Nonspecific ST abnormality Abnormal ECG
[2017-02-09 15:06] LABS: HEMATOCRIT 44.2 % (35.0-51.0); LYMPH # 9.7 K/uL (1.0-4.3); MEAN CELL VOLUME 86.9 fL (80.0-94.0); MEAN CORPUSCULAR HEMOGLOBIN 27.8 pg (27.0-31.0); MEAN PLATELET VOLUME 7.6 fL (7.2-11.7); MONO # 1.4 K/uL (0.0-0.8); MONO % 4.4 % (0.0-10.0); RED CELL DISTRIBUTION WIDTH 14.3 % (11.5-14.5)
[2017-02-09 15:09] LABS: WHITE BLOOD COUNT 31.1 K/uL (4.8-10.8)
[2017-02-09 15:17] LABS: CHLORIDE 96 mmol/L (98-107)
[2017-02-09 15:18] LABS: POTASSIUM 3.7 mmol/L (3.6-5.2); SODIUM 133 mmol/L (132-148)
[2017-02-09 15:20] LABS: ALB/GLOB RATIO 1.1 (1.0-2.1); AST/SGOT 23 U/L (17-59); BILIRUBIN,TOTAL 0.5 mg/dL (0.2-1.3); BLOOD UREA NITROGEN 27 mg/dL (9-20); CARBON DIOXIDE 25 mmol/L (22-30); GFR AFRICAN-AMERICAN > 60; TOTAL PROTEIN 6.8 g/dL (6.3-8.3)
[2017-02-09 15:21] LABS: ALKALINE PHOSPHATASE 76 U/L (38-126); ALT/SGPT 32 U/L (21-72); CALCIUM 8.8 mg/dl (8.6-10.4); GLUCOSE,RANDOM 123 mg/dL (75-110)
[2017-02-09 16:10] VITALS: BP 143/63; PULSE 91; TEMP 97.5; O2SAT 99
--- NOTE | 2017-02-09 16:22 | CP.PCM.PN ---
Subjective - Date & Time of Evaluation Date of Evaluation: 02/09/17 Time of Evaluation: 16:21 - Subjective Subjective: 76 Y/O SEEN AND EXAMINED BY DR Kory CASTRO, PT ADMITTED FOR NEAR SYNCOPAL EPISODE, DIZZINESS AND CHEST PAIN, ALSO RECENTLY ADMITTED FOR PNEUMONIA, PT CLEARED FOR D /C PER DR CASTRO, DR SUMMERS, DR SNYDER AND DR COOL, 2D ECHO- HYPERTENSIVE HEART DISEASE, BRAIN MRI NEGATIVE, PT DENIES ANY CP, SOB, PALPITATION, NO NEURO DEFICIT, RESP EASY AND UNLABORED, NAD, B/L CTA, PT GIVEN RX FOR Z-PACK, MEDROL DOSE PACK, PLAVIX AND CRESTOR PER DR CASTRO, PT EDUCATED TO F/U OUPT, RETURN TO ED IF ANY WORSENING S/S, AGREE, VERBALIZE UNDERSTANDING. Objective - Vital Signs/Intake and Output Vital Signs (last 24 hours): Temp Pulse Resp BP Pulse Ox 97.5 F L 91 H 20 143/63 99 02/09/17 16:09 02/09/17 16:09 02/09/17 16:09 02/09/17 16:09 02/09/17 16:09 Intake and Output: 02/09/17 02/09/17 06:59 18:59 Intake Total 490 Balance 490 - Medications Medications: Current Medications Albuterol/Ipratropium (Duoneb 3 Mg/0.5 Mg (3 Ml) Ud) 3 ml INH RQ6 [facility] Last Admin: 02/09/17 13:25 Dose: 3 ml Aspirin (Ecotrin) 325 mg PO DAILY [facility] Last Admin: 02/09/17 09:19 Dose: 325 mg Clopidogrel Bisulfate (Plavix) 75 mg PO DAILY [facility] Last Admin: 02/09/17 09:18 Dose: 75 mg Enoxaparin Sodium (Lovenox) 40 mg SC DAILY [facility] Last Admin: 02/09/17 09:19 Dose: 40 mg Hydrochlorothiazide (Microzide) 12.5 mg PO DAILY [facility] Last Admin: 02/09/17 09:18 Dose: 12.5 mg Ceftriaxone Sodium (Rocephin Iv 1 Gm Duplex) 50 mls @ 100 mls/hr IVPB Q24H [facility] Last Admin: 02/08/17 22:05 Dose: 100 mls/hr Azithromycin 500 mg/ Sodium (Chloride) 250 mls @ 167 mls/hr IVPB Q24H [facility] Last Admin: 02/09/17 00:03 Dose: 167 mls/hr Losartan Potassium (Cozaar) 100 mg PO DAILY [facility] Last Admin: 02/09/17 09:18 Dose: 100 mg Methylprednisolone (Solu-Medrol) 40 mg IVP Q8 [facility] Last Admin: 02/09/17 14:03 Dose: 40 mg Rosuvastatin Calcium (Crestor) 10 mg PO HS [facility] Fluticasone/Salmeterol (Advair Diskus 250/50) 1 puff IH RBID [facility] - Labs Labs: 02/09/17 14:30 02/09/17 14:30
--- NOTE | 2017-02-09 18:12 | CP.PCM.PN ---
Subjective - Date & Time of Evaluation Date of Evaluation: 02/09/17 Time of Evaluation: 12:20 - Subjective Subjective: clinically same Objective - Vital Signs/Intake and Output Vital Signs (last 24 hours): Temp Pulse Resp BP Pulse Ox 97.5 F L 91 H 20 143/63 99 02/09/17 16:09 02/09/17 16:09 02/09/17 16:09 02/09/17 16:09 02/09/17 16:09 Intake and Output: 02/09/17 02/09/17 06:59 18:59 Intake Total 490 Balance 490 - Medications Medications: Current Medications Albuterol/Ipratropium (Duoneb 3 Mg/0.5 Mg (3 Ml) Ud) 3 ml INH RQ6 [facility] Last Admin: 02/09/17 13:25 Dose: 3 ml Aspirin (Ecotrin) 325 mg PO DAILY [facility] Last Admin: 02/09/17 09:19 Dose: 325 mg Clopidogrel Bisulfate (Plavix) 75 mg PO DAILY [facility] Last Admin: 02/09/17 09:18 Dose: 75 mg Enoxaparin Sodium (Lovenox) 40 mg SC DAILY [facility] Last Admin: 02/09/17 09:19 Dose: 40 mg Hydrochlorothiazide (Microzide) 12.5 mg PO DAILY [facility] Last Admin: 02/09/17 09:18 Dose: 12.5 mg Ceftriaxone Sodium (Rocephin Iv 1 Gm Duplex) 50 mls @ 100 mls/hr IVPB Q24H [facility] Last Admin: 02/08/17 22:05 Dose: 100 mls/hr Azithromycin 500 mg/ Sodium (Chloride) 250 mls @ 167 mls/hr IVPB Q24H [facility] Last Admin: 02/09/17 00:03 Dose: 167 mls/hr Losartan Potassium (Cozaar) 100 mg PO DAILY [facility] Last Admin: 02/09/17 09:18 Dose: 100 mg Methylprednisolone (Solu-Medrol) 40 mg IVP Q8 [facility] Last Admin: 02/09/17 14:03 Dose: 40 mg Rosuvastatin Calcium (Crestor) 10 mg PO HS [facility] Fluticasone/Salmeterol (Advair Diskus 250/50) 1 puff IH RBID [facility] - Labs Labs: 02/09/17 14:30 02/09/17 14:30 - Constitutional Appears: Well - Head Exam Head Exam: ATRAUMATIC, NORMAL INSPECTION, NORMOCEPHALIC - Eye Exam Eye Exam: EOMI, Normal appearance, PERRL Pupil Exam: NORMAL ACCOMODATION, PERRL - ENT Exam ENT Exam: Mucous Membranes Moist, Normal Exam - Neck Exam Neck Exam: Full ROM, Normal Inspection. absent: Lymphadenopathy - Respiratory Exam Respiratory Exam: Decreased Breath Sounds - Cardiovascular Exam Cardiovascular Exam: REGULAR RHYTHM, +S1, +S2 - GI/Abdominal Exam GI & Abdominal Exam: Soft, Diminished Bowel Sounds - Rectal Exam Rectal Exam: Deferred Assessment and Plan (1) Chronic congestive heart failure Status: Acute (2) Emphysema of lung Status: Acute (3) Near syncope Status: Acute (4) Pneumonia Status: Acute (5) Shortness of breath Status: Acute (6) Shortness of breath Status: Acute - Assessment and Plan (Free Text) Plan: Patient can be discharged today Patient educated to follow-up as outpatient and return to ED if any worsening of symptoms Continue meds as ordered
--- NOTE | 2017-02-09 18:38 | CP.PCM.PN ---
Objective - Vital Signs/Intake and Output Vital Signs (last 24 hours): Temp Pulse Resp BP Pulse Ox 97.5 F L 91 H 20 143/63 99 02/09/17 16:09 02/09/17 16:09 02/09/17 16:09 02/09/17 16:09 02/09/17 16:09 Intake and Output: 02/09/17 02/09/17 06:59 18:59 Intake Total 490 Balance 490 - Medications Medications: Current Medications Albuterol/Ipratropium (Duoneb 3 Mg/0.5 Mg (3 Ml) Ud) 3 ml INH RQ6 [facility] Last Admin: 02/09/17 13:25 Dose: 3 ml Aspirin (Ecotrin) 325 mg PO DAILY [facility] Last Admin: 02/09/17 09:19 Dose: 325 mg Clopidogrel Bisulfate (Plavix) 75 mg PO DAILY [facility] Last Admin: 02/09/17 09:18 Dose: 75 mg Enoxaparin Sodium (Lovenox) 40 mg SC DAILY [facility] Last Admin: 02/09/17 09:19 Dose: 40 mg Hydrochlorothiazide (Microzide) 12.5 mg PO DAILY [facility] Last Admin: 02/09/17 09:18 Dose: 12.5 mg Ceftriaxone Sodium (Rocephin Iv 1 Gm Duplex) 50 mls @ 100 mls/hr IVPB Q24H [facility] Last Admin: 02/08/17 22:05 Dose: 100 mls/hr Azithromycin 500 mg/ Sodium (Chloride) 250 mls @ 167 mls/hr IVPB Q24H [facility] Last Admin: 02/09/17 00:03 Dose: 167 mls/hr Losartan Potassium (Cozaar) 100 mg PO DAILY [facility] Last Admin: 02/09/17 09:18 Dose: 100 mg Methylprednisolone (Solu-Medrol) 40 mg IVP Q8 [facility] Last Admin: 02/09/17 14:03 Dose: 40 mg Rosuvastatin Calcium (Crestor) 10 mg PO HS [facility] Fluticasone/Salmeterol (Advair Diskus 250/50) 1 puff IH RBID [facility] - Labs Labs: 02/09/17 14:30 02/09/17 14:30
--- NOTE | 2017-02-16 10:35 | PQF GENQUE ---
This form is a permanent part of the medical record Dr. Rueda, Please provide me with the underlying cause of this patient Syncope, dizziness and chest pain. Also, did you treated this patient for pneumonia on this admission? Thank you Clarification of your documentation is requested to better reflect the severity of illness and intensity of treatment of your patient. Indicators present [] Specify: [] [] Specify: [] [] Specify: [] [] Specify: [] Location in the medical record that reflects the above clinical findings: [] Treatment Provided: [] PHYSICIAN'S RESPONSE Based on your medical judgment of the clinical indicators outlined above please clarify the following: [] Practitioner response [] If unable to determine, please check the box, sign and date. Present On Admission (POA) Indicator: [] Present at the time of admission [] Not present at the time of admission [] Clinically Undetermined In responding to this query, please exercise your independent professional judgment. The fact that a question is asked does not imply that any particular answer is desired or expected. Thank you for your clarification on this documentation. If you have any questions please call:[ ] * Thank you, [ ] research worker kitchen JADE
== END 2017-02-09 18:30 | disposition home or self-care (01) | DRG 312 ==
LOC: C.ER 18:01 → C.9E 20:52 → C.6T 22:14 → OBSVTOIN 02-07 17:28
PROVIDERS: ADMIT Internal Medicine Nephrology; ATTEND Internal Medicine Nephrology
DX: R55 Syncope and collapse (principal); J18.9 Pneumonia, unspecified organism; E87.5 Hyperkalemia; J44.0 Chronic obstructive pulmonary disease with (acute) lower respiratory infection; I11.9 Hypertensive heart disease without heart failure; J45.909 Unspecified asthma, uncomplicated; R07.9 Chest pain, unspecified; R42 Dizziness and giddiness; Z87.891 Personal history of nicotine dependence; Z87.01 Personal history of pneumonia (recurrent)